=== PATIENT | female | born 1950 | race African-American/Black ===

== ENCOUNTER 2017-02-05 12:26 | Observation (INO) | payer MEDICARE ==
[2017-02-05 13:39] LABS: PTT 28.5 SEC (22.9-36.1); Prothrombin Time 13.6 SEC (12.0-14.7)
[2017-02-05 14:04] LABS: Troponin I Less than 0.010 ng/mL (< 0.028)
--- NOTE | 2017-02-05 14:58 | CT ---
CT ANGIO CHEST WITH CONTRAST: Technique: Multiple axial tomograms were obtained through the chest with IV enhancement in the pulmon olivia angio phase following angio protocol with multiplanar reconstruction and 3D post processing. History: Elevated D-Dimer. Syncope. Pulmonary artery opacification is suboptimal. This exam was performed primarily in an aortic phase wi th dense aortic pacification. No evidence of proximal pulmonary embolus. Segmental and subsegmental e mboli cannot be excluded because of inadequate pulmonary artery opacity. No evidence of thoracic aortic dissection. Lungs are clear. No infiltrate or effusion. Mediastinum is unremarkable. Both lobes of the thyroid are enlarged and heterogeneous. There is a dominate mass with calcification involving the right lobe of thyroid measuring up to 2.6 cm. There are at least two nodular densities in the left lobe, each measuring up to 1.5 cm. Recommend a separate thyroid ultrasound evaluation. IMPRESSION: 1. Suboptimal opacification of pulmonary arteries. No evidence of proximal pulmonary embolus. 2. Enlarged heterogeneous thyroid with bilateral thyroid nodule. A dominant thyroid on the right with calcification. Further thyroid evaluation recommended. POS: [facility]
--- NOTE | 2017-02-05 15:02 | CT ---
ABDOMEN CT WITH CONTRAST PELVIC CT WITH CONTRAST: Date: 02/05/17 HISTORY: Syncopal episode. Patient was sitting in a chair and woke up with her occupational therapist standing over her. Difficulty breathing. Diffuse abdominal pain. Right upper quadrant pain. COMPARISON: None. TECHNIQUE: An abdomen and pelvic CT are performed with IV contrast. Enteric contrast was not administered. Coron al reformatted images are submitted for interpretation. FINDINGS: ABDOMEN CT: Lung bases are clear. There is calcification of the coronary artery as well as the ascending thoracic aorta. Minimal atherosclerotic disease of the descending thoracic aorta and abdominal aorta. No aneu rysm. No periaortic fat stranding. Heart size is within normal limits. No significant pericardial flu id. Though contrast has been given, there is poor enhancement of the solid organs due to delay secondary to performing a CT angiogram of the chest prior to this exam. The liver, spleen, pancreas, and adrena l glands have appropriate enhancement. Gallbladder is unremarkable. Symmetric enhancement and excretion into the intra and extrarenal collecting system bilaterally. No e vidence obstructive uropathy. No mesenteric mass, lymphadenopathy, free air, or free fluid. No gastrohepatic, retrocrural, or periportal lymphadenopathy. Limited evaluation of the alimentary canal due to lack of oral contrast. A hiatal hernia is noted. Il eocecal junction is normal. Normal caliber air-filled appendix. Fecal material in a nondistended, non dilated colon. There are diverticula. No evidence of diverticulitis. PELVIC CT: Limited evaluation of the pelvis due to beam attenuation artifact. There are no calcifications within the urinary bladder. Uterus and adnexal structures are unremarkable. No pelvic mass, lymphadenopathy , free air, or free fluid. There are no lytic or blastic lesions. There is fusion hardware in the lumbosacral junction. IMPRESSION: No acute abnormality in the abdomen or pelvis. POS: [facility]
[2017-02-05] MEDS ORDERED: Sodium Chloride 0.9% 1,000 ML IV SCH (15:35)
[2017-02-05 15:44] VITALS: BMI 27.6
[2017-02-05] MEDS ORDERED: ISOVUE-370 76%-LOCM 1 ML ONE (15:44)
[2017-02-05] MEDS ORDERED: Ondansetron ODT 4 MG TAB PO PRN (18:25)
[2017-02-05] MEDS ORDERED: Albuterol Sulfate 2.5 mg/3 ml Neb NEB PRN (18:25)
[2017-02-05] MEDS ORDERED: Ondansetron HCl/PF 4 MG/2 ML Vial IVP PRN (18:25)
[2017-02-05] MEDS ORDERED: Acetaminophen 500 MG TAB PO PRN (18:25)
[2017-02-05] MEDS: Famotidine 20 MG TAB PO SCH (20:30)
[2017-02-05] MEDS: Pregabalin 50 MG CAP PO SCH (20:30)
[2017-02-05] MEDS: Sodium Chloride 0.9% 1,000 ML IV SCH (20:31)
[2017-02-05] MEDS: traMADol HCl 50 MG TAB PO SCH (21:59)
--- NOTE | 2017-02-05 22:36 | HP ---
DATE OF ADMISSION: 02/05/2017 PRIMARY CARE PROVIDER: Dr. Radha Romero. CHIEF COMPLAINT: Passing out. HISTORY OF PRESENT ILLNESS: This is a 67-year-old -Citizen Of [place] female who presents to [facility] after apparently sustaining a syncopal episode while at home. The patient wa s apparently waiting on her occupational therapist through home health services, when she apparently was found sitting in a chair with her occupational therapist standing over her, trying to wake her up . The patient states she apparently had a brief episode of loss of consciousness, opened her eyes af ter her therapist called her name and denied any head trauma. The patient states that she was recent ly placed on Lasix therapy for lower extremity swelling and recently was taken off the medication as of the date of admission. The patient denies any lower extremity swelling currently, but has noted t hat her blood pressure is on the low side, but has been compliant with her chronic antihypertensive r egimen. The patient states she was recently admitted for short stay at [facility] in [place], recei ving 2 units of packed red blood cells as well as being placed on multivitamin, B12, folate and iron supplementation. The patient states she normally is somewhat weak and requires home health assistanc e currently. The patient states she also receives assistance with activities of daily living as well as assistance with home chores. The patient does ambulate with the use of a rolling walker and yamilka ed any recent fever, chills or exposure history. The patient states the rest of her chronic medicati ons remain the same except the discontinuation of Lasix as stated previously. The patient denied any specific hematemesis, melena, or hematuria. In the emergency room, the patient underwent general ev aluation including CT imaging of the brain showing no acute intracranial process. The patient also u nderwent multiple imaging modalities including CT angiogram of the chest, which was negative and CT o f the abdomen and pelvis, which was negative. Metabolic survey did reveal evidence of dehydration wi th creatinine of 1.95 above baseline values of 0.86 to 0.99. The patient admits to feeling thirsty a nd generally weak. The patient was transferred to the observation unit for further evaluation. PAST MEDICAL HISTORY: 1. Chronic normocytic anemia, status post 2 units of packed red blood cells in 01/2017. 2. Iron deficiency. 3. B12 and folate deficiency. 4. Chronic obstructive pulmonary disease. 5. Hypertension. 6. Depression. 7. History of gout. 8. Venous insufficiency of lower extremities. 9. Renault phenomenon. 10. Chronic pain syndrome. 11. Gastroesophageal reflux disease. 12. Fibromyalgia. 13. Lupus. 14. Degenerative joint disease. 15. History of GI bleed in 02/2014. PAST SURGICAL HISTORY: 1. Status post total left knee arthroplasty. 2. Status post left total hip arthroplasty. 3. Status post back surgery. 4. Status post bilateral breast biopsies. 5. Status post EGD with normal findings in 2013. CURRENT MEDICATIONS: 1. Anoro Ellipta 1 puff inhaled daily. 2. Xopenex 1.25 mg nebulized q.8 hours p.r.n. 3. Lipitor 10 mg p.o. daily. 4. Lisinopril 10 mg half a tab p.o. daily. 5. Omeprazole 40 mg one tab p.o. daily. 6. Prednisone 10 mg 1 tab p.o. daily. 7. Lyrica 50 mg 1 tab p.o. b.i.d. 8. Zoloft 50 mg 1 tab p.o. daily. 9. Hydroxychloroquine sulfate 200 mg 1 tab p.o. daily. 10. Lasix 40 mg p.o. daily. 11. Carvedilol 25 mg half tab p.o. b.i.d. 12. Ferrous gluconate 324 mg one tab p.o. b.i.d. 13. Potassium chloride 10 mEq 2 tabs p.o. daily. 14. Ventolin HFA 2 puffs q.4 hours p.r.n. 15. Plaquenil 200 mg 1 tab p.o. daily. ALLERGIES: CODEINE and LATEX. FAMILY HISTORY: Father is with history of coronary artery disease and renal failure. Mothe r with history of coronary artery disease. SOCIAL HISTORY: The patient resides in the [place], [place] area, living independently, receiving [facility] services. Positive tobacco use up to 20 cigarettes daily. No alcohol or illicit drug use. REVIEW OF SYSTEMS: The following complete review of systems was negative, unless otherwise mentioned in the HPI or below: Constitutional: Weight loss or gain, ability to conduct usual activities. Skin: Rash, itching. Eyes: Double vision, pain. ENT/Mouth: Nose bleeding, neck stiffness, pain, tenderness. Cardiovascular: Palpitations, dyspnea on exertion, orthopnea. Respiratory: Shortness of breath, wheezing, cough, hemoptysis, fever or night sweats. Gastrointestinal: Poor appetite, abdominal pain, heartburn, nausea, vomiting, constipation, or diarr hea. Genitourinary: Urgency, frequency, dysuria, nocturia. Musculoskeletal: Pain, swelling. Neurologic/Psychiatric: Anxiety, depression. Allergy/Immunologic: Skin rash, bleeding tendency. Otherwise, negative except as stated per HPI. PHYSICAL EXAMINATION: VITAL SIGNS: On admission, blood pressure 102/54, pulse 81, respiratory rate 20, temperature 98.2 de grees Fahrenheit, O2 saturation 98% on room air. GENERAL APPEARANCE: This is a 67-year-old -Citizen [place] female, alert and oriented x3, pleasant, conversant, in no acute distress. HEENT: Pupils are equal, round, and reactive to light and accommodation. Extraocular muscles are in tact. No scleral icterus, no conjunctival injection. Nares patent. OP is clear. Teeth in fair rep air. NECK: Supple, no cervical adenopathy, no thyromegaly, no carotid bruits, no JVD appreciated. Cervic al spine with full active and passive range of motion. CHEST: Lungs are clear to auscultation bilaterally. CARDIOVASCULAR: S1, S2, without noted murmur. ABDOMEN: Flat, soft, nontender, nondistended. Bowel sounds are positive in all four quadrants. The re is no hepatosplenomegaly, no abdominal bruits, no rebound or guarding appreciated. EXTREMITIES: Warm and dry with fair turgor. No clubbing, cyanosis or asymmetric edema appreciated. Pulses palpable distally at the dorsalis pedis, posterior tibial and popliteal arteries bilaterally. Capillary refill less than 2 seconds. NEUROLOGIC: Cranial nerves II-XII are grossly intact. No focal or lateralizing signs appreciated. PERTINENT LABORATORY DATA AND X-RAY FINDINGS: Sodium 142, potassium 3.3, chloride 102, CO2 of 27, BU N 32, creatinine 1.95. Estimated GFR of 31, glucose 101. Lactic acid level 1.2, calcium 8.7, magnes ium 1.8. LFTs within normal limits. Troponin I negative x1. BNP 83.7. CBC showed a white blood ce ll count 6.8, hemoglobin 10, hematocrit 32, platelet count 179 with normal differential. Urinalysis negative. CT of the brain dated 02/05/2017 showed no acute intracranial process. CT angiogram of th e chest dated 02/05/2017 showed no evidence for pulmonary embolus. CT of the abdomen and pelvis date d 02/05/2017 showed no acute intraabdominal process. Portable chest x-ray dated 02/05/2017 showed no acute cardiopulmonary process. EKG dated 02/05/2017 by my interpretation shows sinus mechanism with heart rates in the 70s. Normal R-wave progression noted in the precordial leads. Normal axis. No acute ST-T wave changes appreciated. ASSESSMENT AND PLAN: 1. Question of syncopal episode. The patient will be observed on the telemetry unit. Appears dehyd ration and volume depletion as underlying etiology with recent use of Lasix. Continue intravenous no rmal saline at 75 mL per hour. Avoid antihypertensive medications and diuretic therapy. Check carot id Doppler study to rule out focal stenosis. Check 2D transthoracic echocardiogram for ejection frac tion and valvular function. 2. Hypotension. Suspect iatrogenic with the recent addition of Lasix. We will discontinue Lasix an d continue IV fluids as stated previously in #1. Avoid antihypertensive medications. Serial blood p ressure monitoring. 3. Acute kidney injury on chronic kidney disease stage 2 to 3. We will continue IV fluids as outlin ed previously. Avoid nephrotoxic agents and contrast media. Hold Lasix and lisinopril. Repeat crea tinine in the a.m. 4. Chronic normocytic anemia. 5. History of iron deficiency as well as B12 and folate deficiency. Resume multivitamin supplements . Resume folate, thiamine, and ferrous sulfate. 6. Prophylaxis. Sequential compression devices while in bed. Pepcid 20 mg p.o. b.i.d. PT evaluati on for functional assessment. Rolling walker with ambulation. 7. Code status is FULL. Surrogate medical decision maker not identified.
[2017-02-06] MEDS: Sodium Chloride 0.9% 1,000 ML IV SCH (03:44)
[2017-02-06] MEDS: traMADol HCl 50 MG TAB PO SCH (05:30)
[2017-02-06 05:37] LABS: Anion Gap 9 mmol/L (10-20); BUN (Urea Nitrogen) 25 mg/dL (9.8-20.1); Calc. Creatinine Clearance 43 mL/min (70-130); Calcium 8.4 mg/dL (7.8-10.44); Carbon Dioxide 27 mmol/L (23-31); Chloride 105 mmol/L (98-107); Estimated GFR-MDRD 41
[2017-02-06 06:24] LABS: Band 1 % (5-11); Hematocrit 30.9 % (36.0-47.0); Mean Platelet Volume 8.6 fL (7.4-10.4); Neutrophil 74 % (42-75); Reactive Lymphocytes 1 % (0-10); Red Blood Cell (RBC) Count 3.35 mill/uL (4.20-5.40); White Blood Cell (WBC) Count 5.2 thou/uL (4.8-10.8)
[2017-02-06] MEDS ORDERED: Ferrous Gluconate 324 MG TAB PO SCH (08:00)
--- NOTE | 2017-02-06 08:55 | ULT ---
CAROTID DOPPLER: Date: 02/06/17 PROVIDED CLINICAL HISTORY: Syncope. FINDINGS: Tran scale and color Doppler sonography with spectral analysis was performed of the extracranial kam tid system bilaterally. There is scattered atherosclerotic plaque present. There is no evidence for a hemodynamically significant internal carotid artery stenosis by peak systolic velocity or ratio crit eria. Bilateral thyroid nodules are noted, including a left-sided predominantly solid appearing nodul e measuring at least 3.0 cm. Antegrade flow is seen in the vertebral arteries. IMPRESSION: 1. No sonographic evidence for hemodynamically significant internal carotid artery stenosis. 2. Thyroid nodules, for which a dedicated thyroid ultrasound is recommended. CODE T. POS: OFF
[2017-02-06] MEDS ORDERED: predniSONE 5 MG TAB PO SCH (09:00)
[2017-02-06] MEDS ORDERED: Multivitamin W/ Minerals 1 TAB PO SCH (09:00)
[2017-02-06] MEDS ORDERED: Folic Acid 1 MG TAB PO SCH (09:00)
[2017-02-06] MEDS ORDERED: Senokot S 8.6-50 MG TAB PO SCH (09:00)
[2017-02-06] MEDS ORDERED: Fluticasone Propionate Nasal Spray 16 gm Bottle NASAL SCH (09:00)
[2017-02-06] MEDS ORDERED: Aspirin 81 mg Enteric Coated Tablet PO SCH (09:00)
[2017-02-06] MEDS: Pregabalin 50 MG CAP PO SCH (09:40)
[2017-02-06] MEDS: Famotidine 20 MG TAB PO SCH (09:40)
[2017-02-06 12:30] VITALS: TEMP 97.9
[2017-02-06 17:26] VITALS: BP 116/53
--- NOTE | 2017-02-06 18:15 | DIS ---
DATE OF ADMISSION: 02/05/2017 DATE OF DISCHARGE: 02/06/2017 DISCHARGE DIAGNOSES: 1. Syncope secondary to volume depletion and dehydration, resolved. 2. Acute kidney injury/chronic kidney disease stage 2-3 secondary to volume depletion, improved. 3. Chronic normocytic anemia with B12, folate and iron deficiency component, stable. 4. Hypertension, stable. CONSULTATIONS: None. PERTINENT LABORATORY AND X-RAY FINDINGS: Creatinine ranged between 1.52-1.95 with estimated GFR rang ing between 31-41, troponin I negative x2. CBC showed a hemoglobin of 9.8, hematocrit 31, platelet c ount 166. Portable chest x-ray dated 02/05/2017 showed no acute cardiopulmonary process. Right lowe r extremity venous Doppler study dated 02/05/2017 showed no evidence for DVT. CT angiogram of the ch est dated 02/05/2017 showed no evidence for pulmonary embolus. CT of the brain dated 02/05/2017 show ed no acute intracranial process. CT of the abdomen and pelvis dated 02/05/2017 showed no acute intr aabdominal process. Carotid Doppler study dated 02/06/2017 showed no hemodynamically significant marija nosis. Thyroid nodules noted. 2D transthoracic echocardiogram performed on 02/06/2017 pending at th e time of this dictation. HOSPITAL COURSE: The patient was observed on the telemetry unit after initially presenting with ques tionable syncopal/near syncopal event. The patient underwent extensive evaluation with multiple imag ing modalities and metabolic assessment showing evidence of volume depletion, acute kidney injury in the context of iatrogenic component likely due to Lasix therapy and ongoing use of lisinopril. The p atient received IV fluids during her entire hospital course with overall improved in renal function a nd symptomatic improvement. The patient was held off of Lasix and lisinopril therapy with recommenda tion to hold on outpatient basis with evaluation by her primary care provider and freedom of information officer after discharge. Telemetry monitoring showed sinus mechanism without evidence of acute arrhythmia or dysrh ythmia, and overall, the patient remained clinically stable through the hospital course. The patient overall clinically stable and ready for discharge, 02/06/2017. DISCHARGE MEDICATIONS: 1. Albuterol sulfate nebulized solution 2.5 mg nebulize q.8 hours p.r.n. 2. Enteric coated aspirin 81 mg 1 tab p.o. daily. 3. Vitamin B12 of 1000 mcg subcutaneously q. weekly. 4. Ferrous gluconate 324 mg p.o. b.i.d. 5. Flonase nasal spray 2 sprays in each naris daily. 6. Folic acid 1 mg p.o. daily. 7. Lisinopril 20 mg 1 tab p.o. daily, hold until 02/09/2017. 8. Multivitamin 1 tab p.o. daily. 9. Prilosec 40 mg 1 tab p.o. daily. 10. Klor-Con 10 mEq 1 tab p.o. daily. 11. Prednisone 5 mg 1 tab p.o. daily. 12. Lyrica 50 mg p.o. b.i.d. 13. Senokot-S 8.6/50 mg 1 tab p.o. daily. 14. Zoloft 50 mg 1 tab p.o. daily. 15. Tramadol 50 mg 2 tabs p.o. q.8 hours p.r.n. pain. 16. Anoro Ellipta one inhalation daily. FOLLOWUP: The patient will follow up with her primary care provider, Dr. Radha Romero within 7 da ys of discharge. CONDITION ON DISCHARGE: Stable. ACTIVITY: Ad audi. DIET: Heart healthy. CODE STATUS: FULL. DISPOSITION: Home on 02/06/2017.
[2017-02-10] MEDS ORDERED: Cyanocobalamin 1000 MCG/ML VIAL SC SCH (09:00)
== END 2017-02-06 14:21 | disposition home or self-care (01) ==
LOC: ERS 12:26 → 2SW 15:16
PROVIDERS: ADMIT Family Medicine; ATTEND Family Medicine
DX: E86.0 Dehydration (principal); R55 Syncope and collapse; J44.9 Chronic obstructive pulmonary disease, unspecified; M10.9 Gout, unspecified; G89.4 Chronic pain syndrome; K21.9 Gastro-esophageal reflux disease without esophagitis; M32.9 Systemic lupus erythematosus, unspecified; M19.90 Unspecified osteoarthritis, unspecified site; I12.9 Hypertensive chronic kidney disease with stage 1 through stage 4 chronic kidney disease, or unspecified chronic kidney disease; N18.3 Chronic kidney disease, stage 3 (moderate); N17.9 Acute kidney failure, unspecified; D64.9 Anemia, unspecified; I95.9 Hypotension, unspecified; F17.210 Nicotine dependence, cigarettes, uncomplicated; F32.9 Major depressive disorder, single episode, unspecified; Z88.5 Allergy status to narcotic agent; Z91.040 Latex allergy status; Z79.899 Other long term (current) drug therapy; Z98.890 Other specified postprocedural states; Z82.49 Family history of ischemic heart disease and other diseases of the circulatory system; Z84.1 Family history of disorders of kidney and ureter
CPT/HCPCS: 71275; 74177; 80048; 82550; 82553; 84484; 85007; 85027; 85610; 85730; 93005; 93306; 93880; 94640 ×2; 96360; 96361 ×2; 97139; 99285; G0378; G8978; G8979; G8980; 36415; A4216; J7620

== ENCOUNTER 2017-02-11 15:04 | Emergency (ER) | payer MEDICARE ==
[2017-02-11 16:42] LABS: #Eosinphils 0.1 thou/uL (0.0-0.7); #Lymphocytes 0.9 thou/uL (1.20-3.40); #Monocytes 0.5 thou/uL (0.11-0.59); #Neutrophils 5.9 thou/uL (1.40-6.50); %Eosinophils 1.4 % (0.0-10.0); %Lymphocytes 11.7 % (21.0-51.0); %Monocytes 6.7 % (0.0-10.0); Hematocrit 32.1 % (36.0-47.0); Mean Platelet Volume 8.9 fL (7.4-10.4); Red Blood Cell (RBC) Count 3.51 mill/uL (4.20-5.40); White Blood Cell (WBC) Count 7.4 thou/uL (4.8-10.8)
[2017-02-11 16:47] LABS: Prothrombin Time 13.6 SEC (12.0-14.7)
[2017-02-11 16:48] LABS: PTT 22.4 SEC (22.9-36.1)
[2017-02-11 16:56] LABS: Bilirubin Negative (Negative); Blood, Urine Negative (Negative); Glucose, Urine (Dipstick) Negative (Negative); Ketone, Urine Negative (Negative); Nitrite Negative (Negative); Protein, Urine (Dipstick) Negative (Neg-Trace)
[2017-02-11 17:01] LABS: ALT (SGPT) Less than 7 U/L (8-55); AST (SGOT) 19 U/L (5-34); Alkaline Phosphatase 67 U/L (40-150); Anion Gap 14 mmol/L (10-20); BUN (Urea Nitrogen) 29 mg/dL (9.8-20.1); Bilirubin, Total 0.6 mg/dL (0.2-1.2); CK (CPK) 24 U/L (29-168); Calc. Creatinine Clearance 0 mL/min (70-130); Calcium 9.3 mg/dL (7.8-10.44); Carbon Dioxide 27 mmol/L (23-31); Chloride 97 mmol/L (98-107); Estimated GFR-MDRD 31; Globulin 5.4 g/dL (2.4-3.5); Lipase 104 U/L (8-78); Protein, Total 8.9 g/dL (6.0-8.3)
[2017-02-11 17:04] LABS: Troponin I Less than 0.010 ng/mL (< 0.028)
--- NOTE | 2017-02-11 17:47 | RAD ---
EXAM: CHEST ONE VIEW 02/11/17 COMPARISON: 02/05/17. HISTORY: Chest pain. FINDINGS: Normal cardiac silhouette. Pulmonary vessels and hilum are normal. No masses or consolidation. No pne umothorax or osseous abnormalities. IMPRESSION: No acute cardiopulmonary process. POS: [facility]
--- NOTE | 2017-03-03 13:54 | EKG ---
Test Reason : Blood Pressure : / mmHG Vent. Rate : 070 BPM Atrial Rate : 070 BPM P-R Int : 158 ms QRS Dur : 096 ms QT Int : 448 ms P-R-T Axes : 065 -42 067 degrees QTc Int : 483 ms Normal sinus rhythm Left axis deviation Abnormal ECG Confirmed by ИВАН LYNNE, ISAIAS ([id number]), art editor JOZEF MOSQUEDA ([id number]) on 03/03/2017 1:52:36 PM Referred By: Confirmed By:ISAIAS OATES MD
== END 2017-02-11 17:25 | disposition home or self-care (01) ==
LOC: ERS 15:04
DX: R07.89 Other chest pain (principal); R53.1 Weakness; J44.9 Chronic obstructive pulmonary disease, unspecified; M10.9 Gout, unspecified; K92.2 Gastrointestinal hemorrhage, unspecified; D64.9 Anemia, unspecified; F41.9 Anxiety disorder, unspecified; F17.210 Nicotine dependence, cigarettes, uncomplicated; Z79.891 Long term (current) use of opiate analgesic; Z79.899 Other long term (current) drug therapy
CPT/HCPCS: 36415; 51701; 71010; 80053; 81003; 82553; 83605; 83690; 83880; 84443; 84484; 85025; 85610; 85730; 87040; 93005; 96360

== ENCOUNTER 2017-12-03 19:35 | Observation (INO) | payer MEDICARE ==
--- NOTE | 2017-12-03 20:48 | RAD ---
PA AND LATERAL CHEST X-RAY 12/03/17 HISTORY: Anemia. COMPARISON: 08/29/17. FINDINGS: The cardiac silhouette and pulmonary vasculature are within normal limits. Lungs remain clear. There has been no interval change when compared to the prior exam. IMPRESSION: No acute cardiopulmonary process. POS: [facility]
--- NOTE | 2017-12-03 21:25 | RAD ---
THREE VIEWS LEFT WRIST: 12/03/17 HISTORY: Anemia. Erythema nodosum. FINDINGS: No fracture, dislocation, or other osseous abnormality is seen involving the left wrist. IMPRESSION: No acute osseous abnormality. POS: [facility]
[2017-12-03 21:32] LABS: CKMB 0.6 ng/mL (0-6.6); Troponin I Less than 0.010 ng/mL (< 0.028)
[2017-12-03] MEDS ORDERED: HYDROcodone/Acetaminophen 5/325 mg Tablet ONE (21:51)
[2017-12-03] MEDS ORDERED: Ondansetron HCl/PF 4 MG/2 ML Vial IVP PRN (22:42)
[2017-12-04 01:43] VITALS: BMI 23.4
[2017-12-04] MEDS: Acetaminophen 325 MG TAB PO PRN ×2 (02:09→09:30)
--- NOTE | 2017-12-04 02:11 | HP ---
PRIMARY CARE PHYSICIAN: Dr. Romero. CODE STATUS: FULL CODE. TIME OF EVALUATION: 10:40 p.m. CHIEF COMPLAINT: Generalized weakness and generalized pain. HISTORY OF PRESENT ILLNESS: This is a 67-year-old female patient with past medical history of chroni c anemia, myelodysplastic syndrome, lupus, fibromyalgia, came to the hospital after having generalize d pain, generalized weakness, symptoms have been present for a long time; however, in the past few we eks, she also had some shortness of breath and symptoms of fatigue, was getting very severe. Her blo od count was checked and hemoglobin was found to be 6. Patient is receiving blood transfusion and sy mptomatic treatment. REVIEW OF SYSTEMS: Constitutional: No fevers. The patient reported chills, severe generalized weak ness. Respiratory: No cough, sputum production or shortness of breath. Cardiovascular: No chest p ain, palpitation. Gastrointestinal: No nausea, vomiting, diarrhea or abdominal pain. [employer]: No dizz iness, headache or feeling lightheaded. Genitourinary: No burning with urination. Extremities: No leg swelling. PAST MEDICAL HISTORY: Fibromyalgia, Raynaud's, osteoarthritis, lupus, COPD, gout, history of GERD, u pper GI bleeding, hypertension, and anemia. PAST SURGICAL HISTORY: Cholecystectomy, right knee replacement, laminectomy, left hip replacement, b unionectomy of the right foot, cardiac catheterization in 2004. PSYCHIATRIC HISTORY: History of anxiety. SOCIAL HISTORY: She smokes cigarettes, smoked for 30 years 1 pack per day. No alcohol, no drugs. DRUG ALLERGIES: CODEINE and LATEX. REPORTED MEDICATIONS: Omeprazole, sertraline, aspirin, Flonase, Xopenex, Lyrica, hydroxyzine, Afrin, lidocaine, Tylenol, amlodipine, cyanocobalamin, atorvastatin. PHYSICAL EXAMINATION: VITAL SIGNS: On presentation, blood pressure 160/79 with heart rate 76, respiratory rate was 18, tem perature 98.4, pain 7/10, oxygen saturation was 100% on room air. GENERAL APPEARANCE: The patient is alert, oriented, in no acute distress. HEENT: Eyes, normal conjunctivae. Moist oral mucosa. Anicteric. NECK: No JVD. RESPIRATORY: Bilateral air entry. No rales or wheezes. Symmetric expansion. CARDIOVASCULAR: Normal rate, regular rhythm. No murmurs or gallop. No edema. ABDOMEN: Soft, normal bowel sounds. MUSCULOSKELETAL: Patient has tenderness in shoulders and main joints in the body, is generalized. F or that reason, Decreased range of motion. Baseline strength. SKIN: Warm and intact. No pallor, no rash or redness. Peripheral pulses are present. Capillary re fill seems to be intact. NEUROLOGIC: Baseline sensorium. No evidence of any new focal weakness. Baseline speech. Cranial n erves seem to be intact. PSYCHIATRIC: The patient is in a good mood. No anxiety. Oriented. Optimal judgement. EKG was reviewed. The patient has normal sinus rhythm with left axis deviation, minimal voltage crit eria for LVH, prolonged QT, no evidence of any acute ischemic event. Chest x-ray was reviewed. The patient had no acute cardiopulmonary process. A wrist x-ray was reviewed. The patient had no acute osseous abnormalities. LABORATORY DATA: Reviewed. Patient has white count 4.8, hemoglobin 6.7, MCV 89, platelet count 185. INR 1.0. D-dimer 0.9, mildly elevated. Chemistry: Sodium 140, potassium 3.4, chloride 105, carbo n dioxide 35, anion gap 13, BUN 13, creatinine 1.13, GFR 58, glucose 104. Lactic acid 1.4, calcium 9 .0, magnesium 1.8, phosphorus 4.1. Iron 30, TIBC 245, ferritin pending. Total bilirubin less than 0 .2. LFTs were negative. TSH was on the low side. ASSESSMENT AND PLAN: The patient will be placed in the hospital with following medical problems. 1. Symptomatic anemia. The patient has hemoglobin of 6.7, this is acute on chronic. We will monito r, after as needed. This seems to be secondary to underlying lupus and also might be a compone nt of myelodysplastic syndrome. We will need followup with a painting worker as an outpatient. 2. Hypokalemia. Potassium 3.4. This is mild, replace electrolytes as needed. 3. History of lupus. We will reconcile home medications, treat symptomatically. 4. History of fibromyalgia. Patient has generalized pain, especially in the major joints in the bod y, we will treat symptomatically. We will reconcile home medications. 5. Deep venous thrombosis prophylaxis.
[2017-12-04 06:05] LABS: #Eosinphils 0.1 thou/uL (0.0-0.7); #Monocytes 0.5 thou/uL (0.11-0.59); #Neutrophils 2.4 thou/uL (1.40-6.50); %Basophils 0.2 % (0.0-1.0); %Eosinophils 1.6 % (0.0-10.0); %Lymphocytes 25.5 % (21.0-51.0); %Neutrophils 60.7 % (42.0-75.0); Hemoglobin 7.2 g/dL (12.0-16.0); Mean Corpuscular HGB CONC 30.3 g/dL (32.0-36.0); Mean Platelet Volume 9.3 fL (7.4-10.4); Platelet Count 166 thou/uL (130-400); RBC Distribution Width 19.3 % (11.5-14.5); Red Blood Cell (RBC) Count 2.66 mill/uL (4.20-5.40)
[2017-12-04 06:26] LABS: Anion Gap 9 mmol/L (10-20); BUN (Urea Nitrogen) 12 mg/dL (9.8-20.1); Calc. Creatinine Clearance 61 mL/min (70-130); Calcium 8.4 mg/dL (7.8-10.44); Carbon Dioxide 25 mmol/L (23-31); Chloride 106 mmol/L (98-107); Estimated GFR-MDRD 71; Glucose 96 mg/dL (80-115); Potassium 3.4 mmol/L (3.5-5.1); Sodium 137 mmol/L (136-145)
[2017-12-04] MEDS ORDERED: Potassium Chloride 20 MEQ TAB PO SCH (08:00)
--- NOTE | 2017-12-04 14:12 | DIS ---
DATE OF DISCHARGE: 12/04/2017 DISCHARGE DISPOSITION: Home. FOLLOWUP: Follow up with primary care physician, Dr. Romero, in 1 week. Follow up with primary hem atologist, Dr. Linton, after 1 week. ALLERGIES: The patient is allergic to CODEINE and LATEX. DISCHARGE HOME MEDICATIONS: As same as admission medications. No changes were made. BRIEF HOSPITAL COURSE: The patient is a 67-year-old female with chronic anemia, systemic lupus eryth ematosus and myelodysplastic syndrome, who presented to the hospital with generalized weakness. She was found to have a hemoglobin of 6.7. Her routine hemoglobin runs around 9.0. She was admitted to the hospital with a diagnosis of symptomatic anemia. She received a total of 2 units of PRBC. Her h emoglobin this morning was 7.2 after first unit of PRBC. She will receive another unit of PRBC later today. I called the cancer clinic and discussed with Dr. Cerda. Dr. Cerda recommended to set up patient's follow up at the cancer clinic for possible Epogen injections. The patient's symptom h as significantly improved after blood transfusion. Reticulocyte was 3.4. Ferritin was 1091 with iro n of 30, TIBC of 245. Total bilirubin was negative. TSH was 0.2. Troponins were negative. Stool f or occult blood was negative as well. She was also found to have mild hypokalemia that was replaced. Leave repeat labs as outpatient. FINAL DIAGNOSES: 1. Symptomatic anemia. 2. Hypokalemia, corrected. 3. Systemic lupus erythematosus. 4. Fibromyalgia. 5. Chronic anemia. 6. Hyperlipidemia. 7. Chronic obstructive pulmonary disease. Plan of care was discussed with the patient in detail. She stated understanding.
[2017-12-04 14:48] VITALS: BP 132/63; TEMP 99.1
[2017-12-04] MEDS ORDERED: Pregabalin 25 MG CAP PO SCH (15:00)
[2017-12-04] MEDS ORDERED: Pregabalin 50 MG CAP PO SCH ×2 (15:00)
[2017-12-05] MEDS ORDERED: Non-Formulary Item 1 EACH (Sertraline Hcl [Zoloft] 100 MG) PO SCH (09:00)
== END 2017-12-04 15:46 | disposition home or self-care (01) ==
LOC: ERS 19:35 → 2SW 12-04 00:55
PROVIDERS: ADMIT Hospitalist; ATTEND Hospitalist
DX: D46.9 Myelodysplastic syndrome, unspecified (principal); M79.7 Fibromyalgia; M32.9 Systemic lupus erythematosus, unspecified; M19.90 Unspecified osteoarthritis, unspecified site; J44.9 Chronic obstructive pulmonary disease, unspecified; M10.9 Gout, unspecified; K21.9 Gastro-esophageal reflux disease without esophagitis; I73.00 Raynaud's syndrome without gangrene; F41.9 Anxiety disorder, unspecified; F17.210 Nicotine dependence, cigarettes, uncomplicated; E87.6 Hypokalemia; I12.9 Hypertensive chronic kidney disease with stage 1 through stage 4 chronic kidney disease, or unspecified chronic kidney disease; N18.2 Chronic kidney disease, stage 2 (mild); E78.5 Hyperlipidemia, unspecified; G47.00 Insomnia, unspecified; G89.4 Chronic pain syndrome; Z79.82 Long term (current) use of aspirin; Z79.899 Other long term (current) drug therapy; Z88.5 Allergy status to narcotic agent; Z91.040 Latex allergy status
CPT/HCPCS: 36430 ×2; 71046; 73110; 80048; 82274; 82553; 84484; 85025; 86850; 86900; 86901; 86920 ×2; 93005; 99285; G0378; P9016; 36415; A4216

== ENCOUNTER 2018-01-21 10:26 | Outpatient (CLI) | payer MEDICARE, OTHER | END 2018-01-21 10:27 | disposition home or self-care (01) | LOC: BICMAMMO 10:26 | PROVIDERS: ATTEND Family Medicine | DX: Z12.31 Encounter for screening mammogram for malignant neoplasm of breast (principal); R92.1 Mammographic calcification found on diagnostic imaging of breast | CPT/HCPCS: 77063; 77067 ==

== ENCOUNTER 2019-01-11 11:49 | Observation (INO) | payer MEDICARE, OTHER ==
[2019-01-11] MEDS ORDERED: ISOVUE-370 76%-LOCM 1 ML ONE (12:00)
[2019-01-11 12:48] LABS: #Eosinphils 0.1 thou/uL (0.0-0.7); #Lymphocytes 0.9 thou/uL (1.20-3.40); #Monocytes 0.5 thou/uL (0.11-0.59); #Neutrophils 2.6 thou/uL (1.40-6.50); %Basophils 0.4 % (0.0-1.0); %Eosinophils 2.9 % (0.0-10.0); %Lymphocytes 22.3 % (21.0-51.0); %Monocytes 11.5 % (0.0-10.0); %Neutrophils 62.9 % (42.0-75.0); Hemoglobin 8.6 g/dL (12.0-16.0); Mean Corpuscular HGB CONC 31.6 g/dL (32.0-36.0); Mean Corpuscular Hemoglobin 28.4 pg (27.0-31.0); Mean Corpuscular Volume 89.8 fL (78.0-98.0); Mean Platelet Volume 8.6 fL (7.4-10.4); Platelet Count 172 thou/uL (130-400); RBC Distribution Width 13.6 % (11.5-14.5); Red Blood Cell (RBC) Count 3.05 mill/uL (4.20-5.40); White Blood Cell (WBC) Count 4.2 thou/uL (4.8-10.8)
[2019-01-11 13:04] LABS: ALT (SGPT) 12 U/L (8-55); AST (SGOT) 20 U/L (5-34); Albumin 3.4 g/dL (3.4-4.8); Alkaline Phosphatase 77 U/L (40-110); Anion Gap 11 mmol/L (10-20); BUN (Urea Nitrogen) 11 mg/dL (9.8-20.1); Bilirubin, Total 0.3 mg/dL (0.2-1.2); CK (CPK) 31 U/L (29-168); Calc. Creatinine Clearance 0 mL/min (70-130); Calcium 9.3 mg/dL (7.8-10.44); Carbon Dioxide 25 mmol/L (23-31); Chloride 104 mmol/L (98-107); Estimated GFR-MDRD 66; Glucose 90 mg/dL (80-115); Lipase 47 U/L (8-78); Potassium 3.3 mmol/L (3.5-5.1); Protein, Total 8.4 g/dL (6.0-8.3); Sodium 137 mmol/L (136-145)
[2019-01-11 14:02] LABS: Bilirubin Negative (Negative); Blood, Urine Trace (Negative); Clarity Clear (Clear); Glucose, Urine (Dipstick) Negative (Negative); Leukocyte Trace (Negative); Nitrite Negative (Negative); Protein, Urine (Dipstick) Negative (Neg-Trace); Urobilinogen 0.2 mg/dL (Less than 2)
[2019-01-11 14:22] LABS: Bacteria/HPF Rare-Few HPF (None Seen); RBC/HPF 0-3 HPF (0-3); Yeast-Budding Rare HPF (None Seen)
[2019-01-11] MEDS ORDERED: Ondansetron PF 4 MG/2 ML Vial ONE (15:05)
[2019-01-11] MEDS ORDERED: Morphine 4 MG/ML VIAL ONE (15:20)
--- NOTE | 2019-01-11 15:30 | RAD ---
PORTABLE CHEST 1 VIEW: Date: 01/11/19 Time: 1521 hours HISTORY: Dyspnea. FINDINGS: Comparison made with exam of 05/05/17. The heart size is normal. The aorta is tortuous. No lobar consolidation, pneumothoraces, or pleural e ffusions are seen. IMPRESSION: No radiographic evidence of acute cardiopulmonary process. POS: OFF
[2019-01-11] MEDS ORDERED: Aspirin Chewable 81 MG TAB ONE (16:18)
[2019-01-11] MEDS ORDERED: cefTRIAXone\\ROCEPHIN 1 GM VIAL ONE (16:18)
--- NOTE | 2019-01-11 17:05 | CT ---
EXAM: CTA of the chest HISTORY: Chest pain that radiates to the back COMPARISON: 02/05/2017 TECHNIQUE: Multiple contiguous axial images were obtained a CTA of the chest with contrast per pulmon olivia embolism protocol. 3-D oblique MIP reformats and direct coronal reformats were performed. FINDINGS: HEART: Normal in size without focal cardiac abnormality. PULMONARY ARTERIES: Normal in caliber without filling defects to suggest pulmonary emboli. MEDIASTINUM: No hilar or mediastinal lymphadenopathy. The esophagus is enlarged and contains fluid. T his is stable compared to the prior exam. LUNGS: No focal infiltrates or masses. PLEURAL SPACE: No pleural effusion or pneumothorax. CHEST WALL SOFT TISSUES: Unremarkable VISUALIZED OSSEOUS STRUCTURES: Unremarkable VISUALIZED SUBDIAPHRAGMATIC STRUCTURES: Unremarkable. Status post cholecystectomy. IMPRESSION: No evidence of pulmonary thromboembolism
[2019-01-11 17:13] LABS: Troponin I 0.013 ng/mL (< 0.028)
[2019-01-11] MEDS ORDERED: Morphine 4 MG/ML VIAL SLOW IVP PRN (18:30)
[2019-01-11] MEDS ORDERED: Ondansetron ODT 4 MG TAB SL PRN (18:30)
[2019-01-11] MEDS ORDERED: Ondansetron PF 4 MG/2 ML Vial IVP PRN (18:30)
[2019-01-11] MEDS ORDERED: Senokot S 8.6-50 MG TAB PO PRN (19:10)
[2019-01-11] MEDS ORDERED: Nitroglycerin 0.4 MG TAB (25 Tab Bottle) PO PRN (19:10)
[2019-01-11] MEDS ORDERED: Morphine 2 MG/ML SYRINGE SLOW IVP PRN (19:10)
[2019-01-11] MEDS ORDERED: Guaifenesin DM 100-10/5 ML UDCUP PO PRN (19:10)
[2019-01-11] MEDS ORDERED: HYDROcodone/Acetaminophen 5/325 mg Tablet PO PRN (19:10)
[2019-01-11] MEDS ORDERED: Levalbuterol HCl 1.25 MG/0.5 ML NEB NEB PRN (19:10)
[2019-01-11] MEDS ORDERED: Acetaminophen 325 MG TAB PO PRN (19:10)
[2019-01-11] MEDS ORDERED: Bisacodyl 10 MG SUPP PR PRN (19:10)
[2019-01-11] MEDS ORDERED: Albuterol Sulfate 2.5 mg/3 ml Neb NEB PRN (19:24)
[2019-01-11] MEDS ORDERED: Cyanocobalamin 1000 MCG/ML VIAL SC SCH (20:00)
[2019-01-11 20:58] LABS: Troponin I 0.021 ng/mL (< 0.028)
[2019-01-11] MEDS ORDERED: Potassium Chloride 20 MEQ TAB PO SCH (21:00)
--- NOTE | 2019-01-11 21:14 | HP ---
REASON FOR ADMISSION: Epigastric pain with retrosternal chest pain. HISTORY OF PRESENTING ILLNESS: The patient gives history of having epigastric pain from last 2 weeks. She had gone to [facility] where she had a CT scan of the abdomen and pelvis done on the . The patient was told she had UTI and was given Keflex for 5 days. , she went to see her primary care physician with persistent pain in the same area. She was asked to continue for 5 more days of Keflex. She has shortness of breath on exertion. Ms. Padgett has long-standing history of lupus. No complaints of diarrhea or bleeding per rectum. No complaints of palpitations or PND. She ambulates with a walker and does all her ADL at home. Last stress test was in 2012. The patient has had prior history of cholecystectomy as well. She has had prior colonoscopy by Dr. Tran, which was normal as far as she knows. PAST MEDICAL AND SURGICAL HISTORY: History of multinodular goiter. Echo done in January 2017 showed EF of 55%. Last stress test in October 2012 was normal. History of lupus; history of fibromyalgia, Raynaud, osteoarthritis, COPD, gout, GERD, prior history of GI bleed, dyslipidemia, hypertension, chronic right leg ulcer, which has been present for more than 6 months now, likely vitiligo; CKD stage 3, cholecystectomy, bilateral knee replacement, left hip replacement, laminectomy, cardiac cath in 2004 with no intervention. CURRENT MEDICATIONS: The patient is on; 1. Omeprazole 20 mg daily. 2. Lyrica 25 mg 3 times daily. 3. Prednisone 5 mg daily. 4. Ferrous sulfate 325 mg p.o. daily. 5. Atorvastatin 10 mg p.o. daily. 6. Xopenex nebulization q.8 hourly p.r.n. 7. Norvasc 10 mg p.o. daily. 8. Vitamin B12 1000 mcg intramuscular shots once a week. 9. Multivitamin 1 tablet once daily. 10. Zoloft 100 mg p.o. daily. 11. Hydroxyzine p.r.n. 12. Anoro Ellipta inhaler daily. 13. Lasix 40 mg daily. 14. [place] p.r.n. for pain. 15. Folic acid 1 mg p.o. daily. 16. Aspirin 81 mg p.o. daily. 17. Lorazepam 0.5 mg p.r.n. for anxiety. 18. 5 mg p.o. 3 times daily. ALLERGIES: ALLERGIC TO CODEINE, BUT THE PATIENT IS COMFORTABLE TAKING NORCO AT HOME. PERSONAL HISTORY: The patient continues half pack a day. Does not abuse alcohol or drugs. FAMILY HISTORY: Mother at the age of 71 years. She has had history of hypertension and coronary artery disease. Father at the age of 81. He had end-stage renal disease, was not on hemodialysis then. Has a living older sister who has dementia. CODE STATUS: Do not attempt to resuscitate. This was discussed with the patient. Power of title attorney is and her two daughters. REVIEW OF SYSTEMS: CONSTITUTIONAL: Negative for weight loss or gain, ability to conduct usual activities. SKIN: Negative for rash, itching. EYES: Negative for double vision, pain. ENT/MOUTH: Negative for nose bleeding, neck stiffness, pain, tenderness. CARDIOVASCULAR: Negative for palpitations, dyspnea on exertion, orthopnea. RESPIRATORY: Negative for shortness of breath, wheezing, cough, hemoptysis, fever or night sweats. GASTROINTESTINAL: Negative for poor appetite, abdominal pain, heartburn, nausea , vomiting, constipation, or diarrhea. GENITOURINARY: Negative for urgency, frequency, dysuria, nocturia. MUSCULOSKELETAL: Negative for pain, swelling. NEUROLOGIC/PSYCHIATRIC: Negative for anxiety, depression. ALLERGY/IMMUNOLOGIC: Negative for skin rash, bleeding tendency. PHYSICAL EXAMINATION: GENERAL: The patient is a 69-year-old female, who is currently not in any acute distress. VITAL SIGNS: Blood pressure 129/60, pulse 90 per minute, respiratory rate 18 per minute, temperature 99.7 degrees Fahrenheit, and saturating 96% on room air. NECK: Supple. No elevated JVD. HEENT: Eyes; extraocular muscles intact. Pupils reacting to light. Oral cavity, mucous membranes are dry. No exudates or congestion CARDIOVASCULAR: S1 and S2 heard. Regular rhythm. RESPIRATORY: Air entry 1+ bilateral. Scattered rhonchi plus bilateral. ABDOMEN: Soft. Bowel sounds heard. Mild tenderness in the epigastric area. No rigidity or guarding. EXTREMITIES: No peripheral edema or calf tenderness. VASCULAR SYSTEM: Peripheral pulses 1+ bilateral. No ischemic ulcerations or gangrene. CENTRAL NERVOUS SYSTEM: No gross focal deficits noted. The patient is alert, awake, and oriented well. PSYCHIATRIC SYSTEM: The patient's mood is euthymic. No hallucinations or delusions. LABORATORY DATA: CT angio chest done shows no evidence of PE. UA shows trace leukocyte esterase with 4 to 6 wbc's, rare budding yeast. Troponin I x2 negative. Lipase 47. Albumin is 3.4. BNP is 71. Liver enzymes within normal limits. BUN 11, creatinine 1.0, potassium is 3.3. White count of 4, H and H of 8 and 27, platelet count is 172. EKG done shows normal sinus rhythm. CLINICAL IMPRESSION AND PLAN: The patient will be under observation on telemetry for epigastric and retrosternal pain. She has history of lupus and likely might have serositis. She has had a recent CT of the abdomen and pelvis done, which did not reveal any acute pathology on the . No obvious pericardial effusion on the CT angio chest. We will obtain echo with 2D Doppler for LV function. Her last stress test was in 2012 and we will obtain a nuclear stress test as well for possible atypical chest pain. The patient is on prednisone for her lupus and is not on any other medications. We will continue prednisone as before. She will be on full-dose aspirin, Norvasc, Lipitor, Xopenex q.8 hourly, ferrous sulfate, folic acid, multivitamin, Lyrica, and Zoloft as before. Morphine q.4 hourly p.r.n. for pain. The patient has had history of multinodular goiter and we will obtain a free T3, free T4, and TSH in the morning. She will be kept n.p.o. after midnight for stress test. We will also obtain Gastroenterology consultation in view of chronic pain for the last 3 weeks if stress test is normal. She has had two ER visits in the last 3 weeks. Job ID: [id number] [facility]
[2019-01-11] MEDS: Pregabalin 25 MG CAP PO SCH (21:33)
[2019-01-12 05:43] LABS: #Eosinphils 0.1 thou/uL (0.0-0.7); #Monocytes 0.4 thou/uL (0.11-0.59); #Neutrophils 1.7 thou/uL (1.40-6.50); %Basophils 0.3 % (0.0-1.0); %Eosinophils 4.4 % (0.0-10.0); %Lymphocytes 29.6 % (21.0-51.0); %Monocytes 12.9 % (0.0-10.0); %Neutrophils 52.9 % (42.0-75.0); Hemoglobin 7.5 g/dL (12.0-16.0); Mean Corpuscular HGB CONC 31.7 g/dL (32.0-36.0); Mean Corpuscular Hemoglobin 28.3 pg (27.0-31.0); Mean Corpuscular Volume 89.3 fL (78.0-98.0); Mean Platelet Volume 9.6 fL (7.4-10.4); Platelet Count 113 thou/uL (130-400); RBC Distribution Width 13.8 % (11.5-14.5); Red Blood Cell (RBC) Count 2.64 mill/uL (4.20-5.40); White Blood Cell (WBC) Count 3.3 thou/uL (4.8-10.8)
[2019-01-12 05:54] LABS: ALT (SGPT) 12 U/L (8-55); AST (SGOT) 15 U/L (5-34); Albumin 2.9 g/dL (3.4-4.8); Alkaline Phosphatase 66 U/L (40-110); Anion Gap 14 mmol/L (10-20); BUN (Urea Nitrogen) 12 mg/dL (9.8-20.1); Bilirubin, Total 0.2 mg/dL (0.2-1.2); Calc. Creatinine Clearance 72 mL/min (70-130); Calcium 8.5 mg/dL (7.8-10.44); Carbon Dioxide 20 mmol/L (23-31); Cardiac Risk 4.8 (Less than 4.5); Chloride 108 mmol/L (98-107); Cholesterol 110 mg/dl (< 200 Desired); Estimated GFR-MDRD 75; Globulin 4.3 g/dL (2.4-3.5); Glucose 82 mg/dL (80-115); HDL Cholesterol 23 mg/dL (>60 Neg Risk); LDL Cholesterol, Calculated 61 mg/dL; Potassium 3.9 mmol/L (3.5-5.1); Protein, Total 7.2 g/dL (6.0-8.3); Sodium 138 mmol/L (136-145); Triglycerides 131 mg/dL (Less than 150)
[2019-01-12 06:11] LABS: Free T4 (Free Thyroxine) 0.91 ng/dL (0.70-1.48); Thyroid Stimulating Hormone 0.4393 uIU/mL (0.35-4.94)
[2019-01-12] MEDS ORDERED: predniSONE 5 MG TAB PO SCH (08:00)
[2019-01-12] MEDS ORDERED: Ferrous Gluconate 324 MG TAB PO SCH (08:00)
[2019-01-12] MEDS ORDERED: Non-Formulary Item 1 EACH (Umeclidinium Brm/Vilanterol Tr [Anoro Ellipta] 1 INH) IH SCH (09:00)
[2019-01-12] MEDS ORDERED: Aspirin 325 mg Enteric Coated Tablet PO SCH (09:00)
[2019-01-12] MEDS ORDERED: Amlodipine 5 MG TAB PO SCH (09:00)
[2019-01-12] MEDS ORDERED: Folic Acid 1 MG TAB PO SCH (09:00)
[2019-01-12] MEDS ORDERED: Multivitamin W/ Minerals 1 TAB PO SCH (09:00)
[2019-01-12] MEDS ORDERED: Atorvastatin Calcium 10 MG TAB PO SCH (09:00)
[2019-01-12] MEDS ORDERED: Enoxaparin Sodium 40 MG/0.4 ML SYRINGE SC SCH (09:00)
[2019-01-12] MEDS: Pregabalin 25 MG CAP PO SCH ×2 (10:51→13:42)
--- NOTE | 2019-01-12 10:55 | NM ---
Myocardial perfusion scan with SPECT imaging HISTORY: Chest pain COMPARISON: None. FINDINGS: Examination is performed using 32.2 mCi of 90 9M technetium sestamibi on the stress and 9.3 mCi on the resting images. This shows a normal distribution of radiopharmaceutical, no signs of ischemia or scar. Wall motion: There is symmetric contractility to the ventricle. Left ventricular ejection fraction: The calculated left ventricular ejection fraction was 67%. IMPRESSION: Unremarkable myocardial perfusion scan.
[2019-01-12 12:36] VITALS: BP 149/67; TEMP 97.9
[2019-01-12 14:10] VITALS: BMI 28.0
[2019-01-12] MEDS ORDERED: Regadenoson 0.4 MG/5 ML SYRINGE ONE (14:52)
--- NOTE | 2019-01-13 13:01 | DIS ---
DATE OF ADMISSION: 01/11/2019 DATE OF DISCHARGE: 01/12/2019 DISCHARGE DIAGNOSES: 1. Epigastric and retrosternal pain. 2. History of lupus. 3. History of fibromyalgia. 4. History of Raynaud's. HISTORY OF PRESENT ILLNESS: The patient is a 69-year-old female with history of significant lupus and Raynaud phenomenon, who presented to the emergency department. The patient had previously been seen by her provider, diagnosed with urinary tract infection and treated with p.o. antibiotics. She subsequently had persistent epigastric and retrosternal pain and presented to the ER in [place]. She had negative enzymes, nonspecific EKG, and was transferred to our facility. HOSPITAL COURSE: The patient was placed in observation. She had a chest x-ray, which was negative. She had a CT angiogram, which was negative for any evidence of PE. She remained on telemetry, had serial cardiac isoenzymes, which were negative. She underwent a nuclear medicine stress test, which was unremarkable with the EF of 67%. She had an echocardiogram performed, which revealed an EF of 60% to 65% and no other major structural or functional abnormalities. With that, the patient was prepared for discharge, talked to her about the possibility of GI consult versus outpatient followup. We were both comfortable with her having outpatient evaluation. PHYSICAL EXAMINATION: VITAL SIGNS: At the day of discharge, temperature is 97.9, pulse 90, respirations 20, O2 saturation 93% to 98% on room air, BP 149/67. GENERAL: She was awake and alert. HEART: Regular rate and rhythm. LUNGS: Clear. ABDOMEN: Benign. EXTREMITIES: Showed some chronic skin changes of the distal fingers from the Raynaud phenomenon, but otherwise no edema. DISPOSITION: The patient is discharged to home. ACTIVITY: As tolerated. DIET: She has no dietary restrictions. MEDICATIONS: She will be on; 1. Folic acid. 2. Atorvastatin. 3. Norvasc. 4. F[place]on. 5. Senokot. 6. Zoloft. 7. Lyrica. 8. Anoro Ellipta. 9. Multivitamin. 10. Xopenex. 11. Omeprazole. 12. [place]. 13. Lasix. 14. B12. 15. Atarax. All unchanged from her home medications. FOLLOWUP: She will follow up with Dr. Radha Romero, and she can return to the hospital should she have any problems prior to that time. Job ID: [id number]
[2019-01-13 18:03] LABS: ANA Symphony (Qualitative) POSITIVE (Negative); ANA Symphony (Quantitative) 1.8 Ratio (< 0.7 Negative); CENP IgG Antibody 0.7 EliAU/mL (<7 Negative); Jo-1 IgG Antibody 0.3 EliAU/mL (<7 Negative); RNP70 IgG Antibody 4.1 EliAU/mL (<7 Negative); SSA/Ro IgG Antibody 0.6 EliAU/mL (<7 Negative); SSB/La IgG Antibody 0.5 EliAU/mL (<7 Negative); Smith D IgG Antibody 2.9 EliAU/mL (<7 Negative); dsDNA IgG Antibody 1.6 IU/mL (<10 Negative)
== END 2019-01-12 16:20 | disposition home or self-care (01) ==
LOC: ERS 11:49 → 2SW 18:07
PROVIDERS: ADMIT Internal Medicine; ATTEND Internal Medicine
DX: R07.2 Precordial pain (principal); R10.13 Epigastric pain; M79.7 Fibromyalgia; M19.90 Unspecified osteoarthritis, unspecified site; K21.9 Gastro-esophageal reflux disease without esophagitis; E78.5 Hyperlipidemia, unspecified; I12.9 Hypertensive chronic kidney disease with stage 1 through stage 4 chronic kidney disease, or unspecified chronic kidney disease; N18.3 Chronic kidney disease, stage 3 (moderate); F17.210 Nicotine dependence, cigarettes, uncomplicated; I73.00 Raynaud's syndrome without gangrene; M10.9 Gout, unspecified; M32.9 Systemic lupus erythematosus, unspecified; Z66 Do not resuscitate; Z79.82 Long term (current) use of aspirin; Z79.899 Other long term (current) drug therapy; Z88.5 Allergy status to narcotic agent; Z91.040 Latex allergy status
CPT/HCPCS: 71045; 71275; 78452; 80053; 80061; 82550; 83690; 83880; 84439; 84481; 84484 ×2; 85025; 86038; 86225; 86235; 87040; 93005; 93017; 93306; 94640 ×2; 94760; 96361; 96365; 96375; 99285; 99406; A9500; G0378 ×2; 36415; 81003; 81015; 84443; J0696; J2270; J2405; J2785; J7512; J7611; J7620; Q9966

== ENCOUNTER 2019-01-27 13:27 | Outpatient (CLI) | payer MEDICARE ==
--- NOTE | 2019-01-27 14:58 | MMO ---
Bilateral MAMMO Bilat Screen [facility]. CLINICAL HISTORY: Patient is 69 years old and is seen for screening. The patient has no family history of breast cancer. The patient has no personal history of cancer. The patient has a history of bilateral Stereotatic Biopsy in April, - benign. VIEWS: The views performed were: bilateral craniocaudal with tomosynthesis and bilateral mediolateral oblique with tomosynthesis. FILMS COMPARED: The present examination has been compared to prior imaging studies performed at [facility] on 05/23/2005, 04/15/2014, 06/06/2015 and 01/21/2018. This study has been interpreted with the assistance of computer-aided detection. MAMMOGRAM FINDINGS: The breasts are almost entirely fat. Benign calcifications are noted bilaterally. Right biopsy clip. There are no suspicious masses, suspicious calcifications, or new areas of architectural distortion. IMPRESSION: THERE IS NO MAMMOGRAPHIC EVIDENCE OF MALIGNANCY. A ROUTINE FOLLOW-UP MAMMOGRAM IN 1 YEAR IS RECOMMENDED. THE RESULTS OF THIS EXAM WERE SENT TO THE PATIENT. ACR BI-RADS Category 2 - Benign finding MAMMOGRAPHY NOTE: 1. A negative mammogram report should not delay a biopsy if a dominant of clinically suspicious mass is present. 2. Approximately 10% to 15% of breast cancers are not detected by mammography. 3. Adenosis and dense breasts may obscure an underlying neoplasm. Reported by: BAILEY MORRISON MD Electonically Signed: [id number]
== END 2019-01-27 13:28 | disposition home or self-care (01) ==
LOC: BICMAMMO 13:27
PROVIDERS: ATTEND Family Medicine
DX: Z12.31 Encounter for screening mammogram for malignant neoplasm of breast (principal)
CPT/HCPCS: 77063; 77067

== ENCOUNTER 2020-12-18 15:44 | Inpatient (IN) | payer MEDICARE ==
[~2020-12-18 15:44] MED LIST: Iopamidol-370 76% 500 ML 1 ML ONE
[2020-12-18] MEDS ORDERED: Acetaminophen 500 MG TAB ONE (16:15)
[2020-12-18 16:29] LABS: #Eosinphils 0.1 thou/uL (0.0-0.7); #Monocytes 0.2 thou/uL (0.11-0.59); #Neutrophils 2.1 thou/uL (1.40-6.50); %Basophils 0.5 % (0.0-1.0); %Eosinophils 1.9 % (0.0-10.0); %Lymphocytes 28.8 % (21.0-51.0); %Neutrophils 61.8 % (42.0-75.0); Hemoglobin 8.3 g/dL (12.0-16.0); Mean Corpuscular HGB CONC 33.4 g/dL (32.0-36.0); Mean Corpuscular Hemoglobin 30.8 pg (27.0-31.0); Mean Corpuscular Volume 92.2 fL (78.0-98.0); Mean Platelet Volume 8.3 fL (7.4-10.4); Platelet Count 201 thou/uL (130-400); RBC Distribution Width 14.3 % (11.5-14.5); Red Blood Cell (RBC) Count 2.68 mill/uL (4.20-5.40); White Blood Cell (WBC) Count 3.4 thou/uL (4.8-10.8)
[2020-12-18 17:08] LABS: ALT (SGPT) 11 U/L (8-55); AST (SGOT) 31 U/L (5-34); Albumin 3.8 g/dL (3.4-4.8); Alkaline Phosphatase 68 U/L (40-110); Anion Gap 15 mmol/L (10-20); BUN (Urea Nitrogen) 13 mg/dL (9.8-20.1); Bilirubin, Total 0.3 mg/dL (0.2-1.2); CK (CPK) 69 U/L (29-168); Calc. Creatinine Clearance 0 mL/min (70-130); Calcium 9.2 mg/dL (7.8-10.44); Carbon Dioxide 23 mmol/L (23-31); Chloride 101 mmol/L (98-107); Globulin 4.8 g/dL (2.4-3.5); Glucose 78 mg/dL (83-110); Protein, Total 8.6 g/dL (5.8-8.1); Sodium 136 mmol/L (136-145)
[2020-12-18] MEDS ORDERED: Potassium Chloride 20 MEQ TAB ONE (17:58)
[2020-12-18 18:15] LABS: Magnesium 1.7 mg/dL (1.6-2.6)
[2020-12-18 19:00] LABS: Bilirubin Negative (Negative); Blood, Urine Negative (Negative); Clarity Clear (Clear); Glucose, Urine (Dipstick) Normal (Negative); Ketone, Urine Trace mg/dL (Negative); Leukocyte Negative Leu/uL (Negative); Nitrite Negative (Negative); Protein, Urine (Dipstick) Negative (Neg-Trace); Specific Gravity, Urine 1.029 (1.002-1.036); Urobilinogen Normal mg/dL (Less than 2)
[2020-12-18] MEDS ORDERED: Piperacillin/Tazobactam 3.375 GM VIAL ONE (19:17)
[2020-12-18] MEDS ORDERED: Acetaminophen 650 MG Suppository PR PRN (20:19)
[2020-12-18] MEDS ORDERED: Ondansetron PF 4 MG/2 ML Vial IVP PRN (20:19)
[2020-12-18] MEDS ORDERED: Ondansetron ODT 4 MG TAB PO PRN (20:19)
[2020-12-18] MEDS ORDERED: Electrolyte Replacement Protocol 1 EACH FS SCH (20:30)
[2020-12-18] MEDS ORDERED: Magnesium 2 GM/50 ML 2 GM in Premix Bag 1 BAG IVPB SCH (22:00)
[2020-12-18] MEDS ORDERED: Sodium Chloride 0.9% 1,000 ML IV SCH (22:00)
[2020-12-18] MEDS: Dextrose 5 % And 0.9 % NaCl 1,000 ML IV SCH (22:00)
[2020-12-18] MEDS ORDERED: Morphine 4 MG/ML VIAL SLOW IVP PRN (22:11)
[2020-12-18] MEDS ORDERED: Dextrose 50% Abboject 50 ML SYRINGE ONE (22:11)
[2020-12-18 23:18] VITALS: BMI 19.9
[2020-12-19] MEDS: Potassium Chloride 20 MEQ in Premix Bag 1 BAG IVPB SCH ×2 (00:45→03:24)
[2020-12-19] MEDS: Piperacillin/Tazobactam 3.375 GM in Sodium Chloride 0.9% 100 ML IVPB SCH ×4 (02:30→23:30)
[2020-12-19] MEDS ORDERED: Potassium Chloride 20 MEQ TAB PO SCH (02:45)
[2020-12-19 06:58] LABS: #Eosinphils 0.1 thou/uL (0.0-0.7); #Lymphocytes 0.8 thou/uL (1.20-3.40); #Monocytes 0.2 thou/uL (0.11-0.59); #Neutrophils 1.5 thou/uL (1.40-6.50); %Basophils 0.4 % (0.0-1.0); %Eosinophils 2.6 % (0.0-10.0); %Lymphocytes 31.3 % (21.0-51.0); %Monocytes 8.7 % (0.0-10.0); Hemoglobin 8.1 g/dL (12.0-16.0); Mean Corpuscular HGB CONC 33.4 g/dL (32.0-36.0); Mean Corpuscular Hemoglobin 30.5 pg (27.0-31.0); Mean Corpuscular Volume 91.2 fL (78.0-98.0); Mean Platelet Volume 8.2 fL (7.4-10.4); Platelet Count 202 thou/uL (130-400); RBC Distribution Width 14.2 % (11.5-14.5); Red Blood Cell (RBC) Count 2.64 mill/uL (4.20-5.40); White Blood Cell (WBC) Count 2.6 thou/uL (4.8-10.8)
[2020-12-19] MEDS ORDERED: Artificial Tear Sol 15 ML BOT EA EYE PRN (07:05)
[2020-12-19] MEDS ORDERED: Benzonatate 100 MG CAP PO PRN (07:05)
[2020-12-19] MEDS ORDERED: hydrALAZINE 20 MG/ML VIAL SLOW IVP PRN (07:05)
[2020-12-19] MEDS ORDERED: Loratadine 10 MG TAB PO PRN (07:05)
[2020-12-19] MEDS ORDERED: Calcium Carbonate 500 MG ChewTAB PO PRN (07:05)
[2020-12-19] MEDS ORDERED: Cepastat Lozenges 1 LOZ PO PRN (07:05)
[2020-12-19] MEDS ORDERED: Hydrocerin (Eucerin) Cream 120 gm Jar TOP PRN (07:05)
[2020-12-19] MEDS ORDERED: GUAIFENESIN SF SOLN 200 MG/10 ML UDCUP PO PRN (07:05)
[2020-12-19] MEDS ORDERED: Sodium Chloride 0.65% Nasal 44 ML BOT EA NARE PRN (07:05)
[2020-12-19] MEDS ORDERED: Fentanyl 100 MCG/2 ML VIAL SLOW IVP PRN (07:06)
[2020-12-19 07:26] LABS: Anion Gap 16 mmol/L (10-20); BUN (Urea Nitrogen) 9 mg/dL (9.8-20.1); Calc. Creatinine Clearance 62 mL/min (70-130); Calcium 8.9 mg/dL (7.8-10.44); Carbon Dioxide 22 mmol/L (23-31); Chloride 103 mmol/L (98-107); Glucose 76 mg/dL (83-110); Iron 82 ug/dL (50-170); Iron Binding Capacity, Total 200 mcg/dL (265-497); Potassium 3.7 mmol/L (3.5-5.1); Sodium 137 mmol/L (136-145)
[2020-12-19 07:28] LABS: Iron Binding Capacity, Total 194 mcg/dL (265-497)
[2020-12-19 07:29] LABS: Iron 79 ug/dL (50-170)
[2020-12-19] MEDS: Saccharomyces boulardii 250 MG CAP PO SCH (09:07)
[2020-12-19] MEDS: Famotidine 20 MG TAB PO SCH ×2 (09:07→21:29)
[2020-12-19] MEDS: Cyanocobalamin (Vitamin B-12) 1,000 MCG TAB PO SCH (09:07)
[2020-12-19] MEDS: Folic Acid 1 MG TAB PO SCH (09:07)
[2020-12-19] MEDS: Enoxaparin Sodium 40 MG/0.4 ML SYRINGE SC SCH (09:13)
[2020-12-19] MEDS: Multivitamin W/ Minerals 1 TAB PO SCH (09:13)
[2020-12-19 14:53] LABS: SARS-CoV-2 PCR by NAA Not Detected (NotDetected)
[2020-12-19] MEDS: Calcium Carbonate 600 MG + Vit D TAB PO SCH (16:30)
[2020-12-19] MEDS: Ketorolac Tromethamine 30 MG/ML VIAL IVP PRN (16:42)
[2020-12-19] MEDS: Dextrose 5 % And 0.9 % NaCl 1,000 ML IV SCH (18:47)
[2020-12-19] MEDS: Zolpidem Tartrate 5 MG TAB PO PRN (21:34)
[2020-12-20] MEDS: Dextrose 5 % And 0.9 % NaCl 1,000 ML IV SCH ×3 (03:54→23:34)
[2020-12-20 06:48] LABS: Anion Gap 14 mmol/L (10-20); BUN (Urea Nitrogen) 7 mg/dL (9.8-20.1); Calc. Creatinine Clearance 62 mL/min (70-130); Calcium 8.7 mg/dL (7.8-10.44); Carbon Dioxide 20 mmol/L (23-31); Chloride 106 mmol/L (98-107); Glucose 82 mg/dL (83-110); Magnesium 1.9 mg/dL (1.6-2.6); Potassium 3.3 mmol/L (3.5-5.1); Sodium 137 mmol/L (136-145)
[2020-12-20 06:51] LABS: #Eosinphils 0.1 thou/uL (0.0-0.7); #Lymphocytes 0.8 thou/uL (1.20-3.40); #Monocytes 0.2 thou/uL (0.11-0.59); #Neutrophils 1.6 thou/uL (1.40-6.50); %Basophils 1.1 % (0.0-1.0); %Eosinophils 3.4 % (0.0-10.0); %Lymphocytes 28.5 % (21.0-51.0); %Monocytes 8.3 % (0.0-10.0); %Neutrophils 58.7 % (42.0-75.0); Hemoglobin 7.3 g/dL (12.0-16.0); Mean Corpuscular HGB CONC 32.6 g/dL (32.0-36.0); Mean Corpuscular Hemoglobin 29.9 pg (27.0-31.0); Mean Corpuscular Volume 91.6 fL (78.0-98.0); Mean Platelet Volume 8.2 fL (7.4-10.4); Platelet Count 204 thou/uL (130-400); RBC Distribution Width 14.5 % (11.5-14.5); Red Blood Cell (RBC) Count 2.44 mill/uL (4.20-5.40); White Blood Cell (WBC) Count 2.7 thou/uL (4.8-10.8)
[2020-12-20] MEDS ORDERED: Potassium Chloride 20 MEQ TAB PO SCH (08:00)
[2020-12-20] MEDS ORDERED: Magnesium 2 GM/50 ML 2 GM in Premix Bag 1 BAG IVPB SCH (08:00)
[2020-12-20] MEDS: Folic Acid 1 MG TAB PO SCH (08:40)
[2020-12-20] MEDS: Enoxaparin Sodium 40 MG/0.4 ML SYRINGE SC SCH (08:40)
[2020-12-20] MEDS: Famotidine 20 MG TAB PO SCH ×2 (08:40→20:05)
[2020-12-20] MEDS: Saccharomyces boulardii 250 MG CAP PO SCH (08:40)
[2020-12-20] MEDS: Cholecalciferol 1,000 UNITS (25 MCG) TAB PO SCH (08:40)
[2020-12-20] MEDS: Multivitamin W/ Minerals 1 TAB PO SCH (08:41)
[2020-12-20] MEDS: Calcium Carbonate 600 MG + Vit D TAB PO SCH ×2 (08:41→17:16)
[2020-12-20] MEDS: Cyanocobalamin (Vitamin B-12) 1,000 MCG TAB PO SCH (08:41)
[2020-12-20] MEDS: Citrucel 500 MG TAB PO SCH (08:41)
[2020-12-20 11:39] LABS: CRP (Inflammatory) 2.72 mg/dL (= or < 0.5)
[2020-12-20 11:53] LABS: Ferritin 954.02 ng/mL (10-291); Free Thyroxine Index 1.63 (1.4-3.1); T4 5.8 ug/dL (4.87-11.72); Thyroid Stimulating Hormone 0.6921 uIU/mL (0.35-4.94)
[2020-12-20] MEDS: Piperacillin/Tazobactam 3.375 GM in Sodium Chloride 0.9% 100 ML IVPB SCH ×3 (13:19→21:05)
[2020-12-20] MEDS: Ketorolac Tromethamine 30 MG/ML VIAL IVP PRN (15:18)
[2020-12-20] MEDS: Zolpidem Tartrate 5 MG TAB PO PRN (23:54)
[2020-12-21] MEDS: Piperacillin/Tazobactam 3.375 GM in Sodium Chloride 0.9% 100 ML IVPB SCH ×3 (06:03→21:18)
[2020-12-21] MEDS: Enoxaparin Sodium 40 MG/0.4 ML SYRINGE SC SCH (08:08)
[2020-12-21] MEDS: Calcium Carbonate 600 MG + Vit D TAB PO SCH ×2 (08:09→17:02)
[2020-12-21] MEDS: Cholecalciferol 1,000 UNITS (25 MCG) TAB PO SCH (08:09)
[2020-12-21] MEDS: Cyanocobalamin (Vitamin B-12) 1,000 MCG TAB PO SCH (08:09)
[2020-12-21] MEDS: Citrucel 500 MG TAB PO SCH (08:09)
[2020-12-21] MEDS: Saccharomyces boulardii 250 MG CAP PO SCH (08:09)
[2020-12-21] MEDS: Famotidine 20 MG TAB PO SCH ×2 (08:09→21:18)
[2020-12-21] MEDS: Multivitamin W/ Minerals 1 TAB PO SCH (08:09)
[2020-12-21] MEDS: Folic Acid 1 MG TAB PO SCH (08:09)
[2020-12-21] MEDS: Dextrose 5 % And 0.9 % NaCl 1,000 ML IV SCH (08:10)
[2020-12-21] MEDS: Ketorolac Tromethamine 30 MG/ML VIAL IVP PRN (14:08)
[2020-12-22] MEDS: Piperacillin/Tazobactam 3.375 GM in Sodium Chloride 0.9% 100 ML IVPB SCH ×3 (06:05→21:03)
[2020-12-22] MEDS: Saccharomyces boulardii 250 MG CAP PO SCH (08:16)
[2020-12-22] MEDS: Folic Acid 1 MG TAB PO SCH (08:17)
[2020-12-22] MEDS: Famotidine 20 MG TAB PO SCH ×2 (08:17→20:36)
[2020-12-22] MEDS: Cholecalciferol 1,000 UNITS (25 MCG) TAB PO SCH (08:18)
[2020-12-22] MEDS: Multivitamin W/ Minerals 1 TAB PO SCH (08:18)
[2020-12-22] MEDS: Calcium Carbonate 600 MG + Vit D TAB PO SCH ×2 (08:19→16:24)
[2020-12-22] MEDS: Cyanocobalamin (Vitamin B-12) 1,000 MCG TAB PO SCH (08:19)
[2020-12-22] MEDS: Enoxaparin Sodium 40 MG/0.4 ML SYRINGE SC SCH (08:22)
[2020-12-22] MEDS: Citrucel 500 MG TAB PO SCH (08:25)
[2020-12-22 12:33] LABS: #Eosinphils 0.1 thou/uL (0.0-0.7); #Lymphocytes 0.9 thou/uL (1.20-3.40); #Monocytes 0.2 thou/uL (0.11-0.59); #Neutrophils 1.8 thou/uL (1.40-6.50); %Basophils 0.5 % (0.0-1.0); %Eosinophils 3.4 % (0.0-10.0); %Lymphocytes 30.1 % (21.0-51.0); %Monocytes 7.1 % (0.0-10.0); Hemoglobin 7.4 g/dL (12.0-16.0); Mean Corpuscular HGB CONC 32.9 g/dL (32.0-36.0); Mean Corpuscular Hemoglobin 30.4 pg (27.0-31.0); Mean Corpuscular Volume 92.2 fL (78.0-98.0); Mean Platelet Volume 8.4 fL (7.4-10.4); Platelet Count 215 thou/uL (130-400); RBC Distribution Width 14.6 % (11.5-14.5); Red Blood Cell (RBC) Count 2.44 mill/uL (4.20-5.40); White Blood Cell (WBC) Count 3.1 thou/uL (4.8-10.8)
[2020-12-22 12:57] LABS: Anion Gap 13 mmol/L (10-20); BUN (Urea Nitrogen) 6 mg/dL (9.8-20.1); Calc. Creatinine Clearance 69 mL/min (70-130); Calcium 8.9 mg/dL (7.8-10.44); Carbon Dioxide 24 mmol/L (23-31); Chloride 102 mmol/L (98-107); Glucose 77 mg/dL (83-110); Sodium 136 mmol/L (136-145)
[2020-12-22] MEDS ORDERED: Potassium Chloride 20 MEQ TAB PO SCH (14:00)
[2020-12-22] MEDS: Acetaminophen 325 MG TAB PO PRN (20:39)
[2020-12-22] MEDS: Zolpidem Tartrate 5 MG TAB PO PRN (20:55)
[2020-12-23] MEDS: Piperacillin/Tazobactam 3.375 GM in Sodium Chloride 0.9% 100 ML IVPB SCH (05:45)
[2020-12-23] MEDS: Citrucel 500 MG TAB PO SCH (08:52)
[2020-12-23] MEDS: Multivitamin W/ Minerals 1 TAB PO SCH (08:52)
[2020-12-23] MEDS: Enoxaparin Sodium 40 MG/0.4 ML SYRINGE SC SCH (08:52)
[2020-12-23] MEDS: Calcium Carbonate 600 MG + Vit D TAB PO SCH ×2 (08:52→18:06)
[2020-12-23] MEDS: Famotidine 20 MG TAB PO SCH ×2 (08:52→20:52)
[2020-12-23] MEDS: Cholecalciferol 1,000 UNITS (25 MCG) TAB PO SCH (08:52)
[2020-12-23] MEDS: Cyanocobalamin (Vitamin B-12) 1,000 MCG TAB PO SCH (08:52)
[2020-12-23] MEDS: Saccharomyces boulardii 250 MG CAP PO SCH (08:52)
[2020-12-23] MEDS: Folic Acid 1 MG TAB PO SCH (08:52)
[2020-12-23] MEDS ORDERED: Potassium Chloride 20 MEQ TAB PO SCH (14:00)
[2020-12-23] MEDS: Amoxicillin/Potassium Clav 875 MG TAB PO SCH (20:52)
[2020-12-23] MEDS: Zolpidem Tartrate 5 MG TAB PO PRN (20:54)
[2020-12-24 06:21] LABS: #Eosinphils 0.1 thou/uL (0.0-0.7); #Lymphocytes 0.9 thou/uL (1.20-3.40); #Monocytes 0.3 thou/uL (0.11-0.59); #Neutrophils 1.2 thou/uL (1.40-6.50); %Basophils 0.5 % (0.0-1.0); %Eosinophils 4.5 % (0.0-10.0); %Lymphocytes 35.9 % (21.0-51.0); %Monocytes 12.4 % (0.0-10.0); %Neutrophils 46.6 % (42.0-75.0); Hemoglobin 7.6 g/dL (12.0-16.0); Mean Corpuscular HGB CONC 32.2 g/dL (32.0-36.0); Mean Corpuscular Hemoglobin 29.7 pg (27.0-31.0); Mean Corpuscular Volume 92.3 fL (78.0-98.0); Mean Platelet Volume 8.2 fL (7.4-10.4); Platelet Count 189 thou/uL (130-400); RBC Distribution Width 14.9 % (11.5-14.5); Red Blood Cell (RBC) Count 2.56 mill/uL (4.20-5.40); White Blood Cell (WBC) Count 2.6 thou/uL (4.8-10.8)
[2020-12-24 06:33] LABS: Anion Gap 11 mmol/L (10-20); BUN (Urea Nitrogen) 14 mg/dL (9.8-20.1); Calc. Creatinine Clearance 69 mL/min (70-130); Calcium 9.2 mg/dL (7.8-10.44); Carbon Dioxide 26 mmol/L (23-31); Chloride 104 mmol/L (98-107); Glucose 87 mg/dL (83-110); Potassium 4.1 mmol/L (3.5-5.1); Sodium 137 mmol/L (136-145)
[2020-12-24] MEDS: Enoxaparin Sodium 40 MG/0.4 ML SYRINGE SC SCH (08:46)
[2020-12-24] MEDS: Amoxicillin/Potassium Clav 875 MG TAB PO SCH ×2 (08:46→20:19)
[2020-12-24] MEDS: Cyanocobalamin (Vitamin B-12) 1,000 MCG TAB PO SCH (08:46)
[2020-12-24] MEDS: Citrucel 500 MG TAB PO SCH (08:46)
[2020-12-24] MEDS: Cholecalciferol 1,000 UNITS (25 MCG) TAB PO SCH (08:46)
[2020-12-24] MEDS: Folic Acid 1 MG TAB PO SCH (08:47)
[2020-12-24] MEDS: Multivitamin W/ Minerals 1 TAB PO SCH (08:47)
[2020-12-24] MEDS: Calcium Carbonate 600 MG + Vit D TAB PO SCH ×2 (08:47→17:11)
[2020-12-24] MEDS: Saccharomyces boulardii 250 MG CAP PO SCH (08:47)
[2020-12-24] MEDS: Famotidine 20 MG TAB PO SCH ×2 (08:47→20:19)
[2020-12-24] MEDS: Acetaminophen 325 MG TAB PO PRN (14:16)
[2020-12-24] MEDS: Zolpidem Tartrate 5 MG TAB PO PRN (20:19)
[2020-12-25 06:55] LABS: #Eosinphils 0.1 thou/uL (0.0-0.7); #Lymphocytes 0.8 thou/uL (1.20-3.40); #Monocytes 0.3 thou/uL (0.11-0.59); #Neutrophils 1.3 thou/uL (1.40-6.50); %Basophils 0.2 % (0.0-1.0); %Eosinophils 3.3 % (0.0-10.0); %Monocytes 12.7 % (0.0-10.0); %Neutrophils 53.8 % (42.0-75.0); Hemoglobin 7.9 g/dL (12.0-16.0); Mean Corpuscular HGB CONC 32.4 g/dL (32.0-36.0); Mean Corpuscular Hemoglobin 29.8 pg (27.0-31.0); Mean Corpuscular Volume 91.8 fL (78.0-98.0); Platelet Count 188 thou/uL (130-400); RBC Distribution Width 15.4 % (11.5-14.5); Red Blood Cell (RBC) Count 2.67 mill/uL (4.20-5.40); White Blood Cell (WBC) Count 2.5 thou/uL (4.8-10.8)
[2020-12-25 07:18] LABS: Anion Gap 11 mmol/L (10-20); BUN (Urea Nitrogen) 15 mg/dL (9.8-20.1); Calc. Creatinine Clearance 67 mL/min (70-130); Calcium 9.5 mg/dL (7.8-10.44); Carbon Dioxide 27 mmol/L (23-31); Chloride 104 mmol/L (98-107); Glucose 84 mg/dL (83-110); Potassium 4.3 mmol/L (3.5-5.1); Sodium 138 mmol/L (136-145)
[2020-12-25] MEDS: Enoxaparin Sodium 40 MG/0.4 ML SYRINGE SC SCH (07:51)
[2020-12-25] MEDS: Famotidine 20 MG TAB PO SCH ×2 (07:51→19:50)
[2020-12-25] MEDS: Amoxicillin/Potassium Clav 875 MG TAB PO SCH ×2 (07:51→19:50)
[2020-12-25] MEDS: Cyanocobalamin (Vitamin B-12) 1,000 MCG TAB PO SCH (07:51)
[2020-12-25] MEDS: Cholecalciferol 1,000 UNITS (25 MCG) TAB PO SCH (07:52)
[2020-12-25] MEDS: Saccharomyces boulardii 250 MG CAP PO SCH (07:52)
[2020-12-25] MEDS: Calcium Carbonate 600 MG + Vit D TAB PO SCH ×2 (07:52→16:37)
[2020-12-25] MEDS: Citrucel 500 MG TAB PO SCH (07:52)
[2020-12-25] MEDS: Folic Acid 1 MG TAB PO SCH (07:52)
[2020-12-25] MEDS: Multivitamin W/ Minerals 1 TAB PO SCH (07:52)
[2020-12-25] MEDS: Acetaminophen 325 MG TAB PO PRN (19:54)
[2020-12-25] MEDS: Zolpidem Tartrate 5 MG TAB PO PRN (21:32)
[2020-12-26 04:38] VITALS: TEMP 97.9
[2020-12-26] MEDS: Acetaminophen 325 MG TAB PO PRN (06:19)
[2020-12-26 07:29] LABS: #Eosinphils 0.1 thou/uL (0.0-0.7); #Lymphocytes 0.8 thou/uL (1.20-3.40); #Monocytes 0.3 thou/uL (0.11-0.59); #Neutrophils 1.1 thou/uL (1.40-6.50); %Basophils 0.4 % (0.0-1.0); %Eosinophils 4.5 % (0.0-10.0); %Lymphocytes 35.8 % (21.0-51.0); %Monocytes 12.2 % (0.0-10.0); %Neutrophils 47.1 % (42.0-75.0); Hemoglobin 8.6 g/dL (12.0-16.0); Mean Corpuscular HGB CONC 32.9 g/dL (32.0-36.0); Mean Corpuscular Hemoglobin 30.1 pg (27.0-31.0); Mean Corpuscular Volume 91.4 fL (78.0-98.0); Mean Platelet Volume 8.8 fL (7.4-10.4); Platelet Count 202 thou/uL (130-400); RBC Distribution Width 15.4 % (11.5-14.5); Red Blood Cell (RBC) Count 2.84 mill/uL (4.20-5.40); White Blood Cell (WBC) Count 2.2 thou/uL (4.8-10.8)
[2020-12-26 07:42] LABS: Anion Gap 12 mmol/L (10-20); BUN (Urea Nitrogen) 17 mg/dL (9.8-20.1); Calc. Creatinine Clearance 65 mL/min (70-130); Calcium 9.3 mg/dL (7.8-10.44); Carbon Dioxide 25 mmol/L (23-31); Chloride 104 mmol/L (98-107); Glucose 85 mg/dL (83-110); Potassium 4.3 mmol/L (3.5-5.1); Sodium 137 mmol/L (136-145)
[2020-12-26] MEDS: Enoxaparin Sodium 40 MG/0.4 ML SYRINGE SC SCH (08:00)
[2020-12-26] MEDS: Saccharomyces boulardii 250 MG CAP PO SCH (08:01)
[2020-12-26] MEDS: Calcium Carbonate 600 MG + Vit D TAB PO SCH (08:01)
[2020-12-26] MEDS: Cyanocobalamin (Vitamin B-12) 1,000 MCG TAB PO SCH (08:01)
[2020-12-26] MEDS: Amoxicillin/Potassium Clav 875 MG TAB PO SCH (08:01)
[2020-12-26] MEDS: Cholecalciferol 1,000 UNITS (25 MCG) TAB PO SCH (08:01)
[2020-12-26] MEDS: Famotidine 20 MG TAB PO SCH (08:01)
[2020-12-26] MEDS: Multivitamin W/ Minerals 1 TAB PO SCH (08:01)
[2020-12-26] MEDS: Folic Acid 1 MG TAB PO SCH (08:02)
[2020-12-26] MEDS: Citrucel 500 MG TAB PO SCH (08:03)
[2020-12-26 08:39] VITALS: BP 121/72
== END 2020-12-26 14:15 | disposition swing bed (61) | DRG 872 ==
LOC: ERS 15:44 → T4-B 19:29
PROVIDERS: ADMIT Student in an Organized Health Care Education/Training Program; ATTEND Internal Medicine
DX: A41.9 Sepsis, unspecified organism (principal); S32.040A Wedge compression fracture of fourth lumbar vertebra, initial encounter for closed fracture; E44.0 Moderate protein-calorie malnutrition; Z68.1 Body mass index [BMI] 19.9 or less, adult; K52.9 Noninfective gastroenteritis and colitis, unspecified; M79.7 Fibromyalgia; M10.9 Gout, unspecified; Z20.822 Contact with and (suspected) exposure to COVID-19; M19.90 Unspecified osteoarthritis, unspecified site; M32.9 Systemic lupus erythematosus, unspecified; J43.9 Emphysema, unspecified; K21.9 Gastro-esophageal reflux disease without esophagitis; E78.5 Hyperlipidemia, unspecified; N18.30 Chronic kidney disease, stage 3 unspecified; I12.9 Hypertensive chronic kidney disease with stage 1 through stage 4 chronic kidney disease, or unspecified chronic kidney disease; G89.29 Other chronic pain; Z96.653 Presence of artificial knee joint, bilateral; Z96.643 Presence of artificial hip joint, bilateral; F17.210 Nicotine dependence, cigarettes, uncomplicated; D63.1 Anemia in chronic kidney disease; F41.9 Anxiety disorder, unspecified; F32.A Depression, unspecified; E87.6 Hypokalemia; W18.39XA Other fall on same level, initial encounter; Y92.009 Unspecified place in unspecified non-institutional (private) residence as the place of occurrence of the external cause; Z88.5 Allergy status to narcotic agent; Z91.040 Latex allergy status; Z90.49 Acquired absence of other specified parts of digestive tract; Z79.899 Other long term (current) drug therapy
CPT/HCPCS: 36415; 36416; 70450; 71045; 72125; 72170; 74177; 80048; 80053; 81003; 82550; 82607; 82728; 82746; 83540; 83550; 83605; 83735; 84100; 84436; 84443; 84479; 84484; 85025; 86140; 87040; 87045; 87046; 87086; 87328; 87329; 87427; 87449; 93005; 96374; J1650; J1885; J2543; J3475; J3480; J3490; J7042; Q9967; U0003; U0005

== ENCOUNTER 2022-01-23 09:34 | Inpatient (IN) | payer MEDICARE ==
[2022-01-23 10:48] LABS: #Eosinphils 0.1 thou/uL (0.0-0.7); #Lymphocytes 0.7 thou/uL (1.20-3.40); #Monocytes 0.4 thou/uL (0.11-0.59); #Neutrophils 2.9 thou/uL (1.40-6.50); %Basophils 0.1 % (0.0-1.0); %Eosinophils 1.6 % (0.0-10.0); %Lymphocytes 17.4 % (21.0-51.0); %Neutrophils 71.9 % (42.0-75.0); Hemoglobin 8.9 g/dL (12.0-16.0); Mean Corpuscular HGB CONC 31.6 g/dL (32.0-36.0); Mean Corpuscular Hemoglobin 30.2 pg (27.0-31.0); Mean Corpuscular Volume 95.5 fl (78.0-98.0); Mean Platelet Volume 9.4 fL (7.4-10.4); Platelet Count 188 10x3/uL (130-400); RBC Distribution Width 15.7 % (11.5-14.5); Red Blood Cell (RBC) Count 2.96 mill/uL (4.20-5.40)
[2022-01-23 11:12] LABS: ALT (SGPT) 10 U/L (8-55); AST (SGOT) 28 U/L (5-34); Albumin 3.6 g/dL (3.4-4.8); Alkaline Phosphatase 55 U/L (40-110); Anion Gap 17 mmol/L (10-20); BUN (Urea Nitrogen) 15 mg/dL (9.8-20.1); Bilirubin, Total 0.3 mg/dL (0.2-1.2); Calc. Creatinine Clearance 0 mL/min (70-130); Calcium 9.8 mg/dL (7.8-10.44); Carbon Dioxide 22 mmol/L (23-31); Chloride 101 mmol/L (98-107); Estimated GFR 48; Globulin 5.4 g/dL (2.4-3.5); Glucose 92 mg/dL (83-110); Potassium 3.7 mmol/L (3.5-5.1); Sodium 136 mmol/L (136-145)
[2022-01-23] MEDS ORDERED: Iopamidol-370 76% 500 ML 1 ML ONE (11:13)
[2022-01-23 12:12] LABS: Bacteria/HPF None Seen HPF (None Seen); Bilirubin 1+ (Negative); Blood, Urine Negative (Negative); Clarity Clear (Clear); Glucose, Urine (Dipstick) Normal (Negative); Ketone, Urine 40 mg/dL (Negative); Leukocyte Negative Leu/uL (Negative); Nitrite Negative (Negative); Protein, Urine (Dipstick) 100 mg/dL (Neg-Trace); RBC/HPF 0-3 HPF (0-3); Specific Gravity, Urine 1.022 (1.002-1.036); Squamous Epithelial None Seen HPF (0-3); WBC/HPF 0-3 HPF (0-3)
[2022-01-23] MEDS ORDERED: methylPREDNISolone Sod Succ/PF 125 MG/2 ML VIAL ONE (13:13)
[2022-01-23 15:29] LABS: Troponin I Less than 0.010 ng/mL (< 0.028)
[2022-01-23] MEDS ORDERED: Lactated Ringer's 1,000 ML IV SCH (15:45)
[2022-01-23 16:29] VITALS: BMI 20.5
[2022-01-23 18:09] LABS: Troponin I 0.016 ng/mL (< 0.028)
[2022-01-23] MEDS: Acetaminophen 325 MG TAB PO PRN (20:38)
[2022-01-23] MEDS: Famotidine 20 MG TAB PO SCH (20:38)
[2022-01-24 05:57] LABS: ALT (SGPT) 10 U/L (8-55); AST (SGOT) 22 U/L (5-34); Albumin 3.2 g/dL (3.4-4.8); Alkaline Phosphatase 48 U/L (40-110); Anion Gap 14 mmol/L (10-20); BUN (Urea Nitrogen) 15 mg/dL (9.8-20.1); Bilirubin, Total 0.3 mg/dL (0.2-1.2); Calc. Creatinine Clearance 48 mL/min (70-130); Calcium 9.1 mg/dL (7.8-10.44); Carbon Dioxide 24 mmol/L (23-31); Cardiac Risk 3.8 (Less than 4.5); Chloride 100 mmol/L (98-107); Cholesterol 120 mg/dl (< 200 Desired); Estimated GFR 62; Globulin 4.6 g/dL (2.4-3.5); Glucose 122 mg/dL (83-110); HDL Cholesterol 32 mg/dL (>60 Neg Risk); Potassium 4.2 mmol/L (3.5-5.1); Protein, Total 7.8 g/dL (5.8-8.1); Sodium 134 mmol/L (136-145)
[2022-01-24 06:55] LABS: Triglycerides 63 mg/dL (Less than 150)
[2022-01-24 07:00] LABS: LDL Cholesterol, Calculated 75 mg/dL
[2022-01-24] MEDS: Acetaminophen 325 MG TAB PO PRN (08:21)
[2022-01-24] MEDS: Famotidine 20 MG TAB PO SCH (08:22)
[2022-01-24] MEDS: Aspirin Chewable 81 MG TAB PO SCH (08:22)
[2022-01-24] MEDS ORDERED: FLU VACC QS2022-23(65YR UP)/PF 240 MCG/0.7 ML SYRINGE IM ONE (09:00)
[2022-01-24] MEDS ORDERED: diphenhydrAMINE 50 MG/ML VIAL IVP SCH (18:45)
[2022-01-24] MEDS ORDERED: Levalbuterol HCl 1.25 MG/0.5 ML NEB NEB PRN (19:43)
[2022-01-24] MEDS: Pregabalin 25 MG CAP PO SCH (21:06)
[2022-01-24] MEDS: Atorvastatin Calcium 10 MG TAB PO SCH (21:06)
[2022-01-24] MEDS: hydrOXYzine 25 MG TAB PO PRN (22:11)
[2022-01-25] MEDS: Pregabalin 25 MG CAP PO SCH ×3 (08:28→21:04)
[2022-01-25] MEDS: Aspirin Chewable 81 MG TAB PO SCH (08:28)
[2022-01-25] MEDS: Ferrous Sulfate 325 MG TAB PO SCH (08:30)
[2022-01-25] MEDS: Folic Acid 1 MG TAB PO SCH (08:31)
[2022-01-25] MEDS: Famotidine 20 MG TAB PO SCH (08:31)
[2022-01-25] MEDS: Amlodipine 10 MG TAB PO SCH (08:31)
[2022-01-25] MEDS: Sertraline 100 MG TAB PO SCH (08:31)
[2022-01-25] MEDS: Atorvastatin Calcium 10 MG TAB PO SCH (21:04)
[2022-01-26] MEDS: Pregabalin 25 MG CAP PO SCH ×3 (09:45→21:22)
[2022-01-26] MEDS: Famotidine 20 MG TAB PO SCH (09:45)
[2022-01-26] MEDS: Folic Acid 1 MG TAB PO SCH (09:45)
[2022-01-26] MEDS: Ferrous Sulfate 325 MG TAB PO SCH (09:45)
[2022-01-26] MEDS: Amlodipine 10 MG TAB PO SCH (09:46)
[2022-01-26] MEDS: Aspirin Chewable 81 MG TAB PO SCH (09:46)
[2022-01-26] MEDS: Sertraline 100 MG TAB PO SCH (09:46)
[2022-01-26] MEDS ORDERED: Cosyntropin 250 MCG VIAL SLOW IVP SCH (15:00)
[2022-01-26 16:01] LABS: Complement-C4 28.6 mg/dL (15-57)
[2022-01-26 16:26] LABS: Free T4 (Free Thyroxine) 0.92 ng/dL (0.70-1.48)
[2022-01-26] MEDS: Atorvastatin Calcium 10 MG TAB PO SCH (21:25)
[2022-01-26] MEDS: hydrOXYzine 25 MG TAB PO PRN (22:59)
[2022-01-27 06:22] LABS: Anion Gap 12 mmol/L (10-20); BUN (Urea Nitrogen) 11 mg/dL (9.8-20.1); Calc. Creatinine Clearance 63 mL/min (70-130); Calcium 8.8 mg/dL (7.8-10.44); Carbon Dioxide 27 mmol/L (23-31); Chloride 103 mmol/L (98-107); Estimated GFR 84; Glucose 86 mg/dL (83-110); Potassium 3.6 mmol/L (3.5-5.1); Sodium 138 mmol/L (136-145)
[2022-01-27] MEDS: Folic Acid 1 MG TAB PO SCH (08:49)
[2022-01-27] MEDS: Famotidine 20 MG TAB PO SCH (08:49)
[2022-01-27] MEDS: Amlodipine 10 MG TAB PO SCH (08:49)
[2022-01-27] MEDS: Sertraline 100 MG TAB PO SCH (08:49)
[2022-01-27] MEDS: Ferrous Sulfate 325 MG TAB PO SCH (08:49)
[2022-01-27] MEDS: Pregabalin 25 MG CAP PO SCH ×3 (08:49→21:10)
[2022-01-27] MEDS: Aspirin Chewable 81 MG TAB PO SCH (08:49)
[2022-01-27] MEDS ORDERED: predniSONE 20 MG TAB PO SCH (13:00)
[2022-01-27] MEDS ORDERED: Cyanocobalamin 1000 MCG/ML VIAL IM SCH (14:45)
[2022-01-27] MEDS: Atorvastatin Calcium 10 MG TAB PO SCH (21:10)
[2022-01-28] MEDS: Pregabalin 25 MG CAP PO SCH ×3 (08:58→21:05)
[2022-01-28] MEDS: Ferrous Sulfate 325 MG TAB PO SCH (08:59)
[2022-01-28] MEDS: Sertraline 100 MG TAB PO SCH (08:59)
[2022-01-28] MEDS: Folic Acid 1 MG TAB PO SCH (08:59)
[2022-01-28] MEDS: Amlodipine 10 MG TAB PO SCH (08:59)
[2022-01-28] MEDS: Famotidine 20 MG TAB PO SCH ×2 (08:59→21:04)
[2022-01-28] MEDS: Aspirin Chewable 81 MG TAB PO SCH (08:59)
[2022-01-28] MEDS: predniSONE 20 MG TAB PO SCH (09:00)
[2022-01-28 13:18] LABS: dsDNA IgG Antibody 1.9 IU/mL (<10 Negative)
[2022-01-28] MEDS: Atorvastatin Calcium 10 MG TAB PO SCH (21:04)
[2022-01-28] MEDS: hydrOXYzine 25 MG TAB PO PRN (21:05)
[2022-01-29] MEDS: Amlodipine 10 MG TAB PO SCH (08:58)
[2022-01-29] MEDS: Aspirin Chewable 81 MG TAB PO SCH (08:58)
[2022-01-29] MEDS: predniSONE 20 MG TAB PO SCH (08:58)
[2022-01-29] MEDS: Pregabalin 25 MG CAP PO SCH ×2 (08:58→15:35)
[2022-01-29] MEDS: Ferrous Sulfate 325 MG TAB PO SCH (08:58)
[2022-01-29] MEDS: Famotidine 20 MG TAB PO SCH (08:59)
[2022-01-29] MEDS: Sertraline 100 MG TAB PO SCH (08:59)
[2022-01-29] MEDS: Folic Acid 1 MG TAB PO SCH (08:59)
[2022-01-29 16:00] VITALS: BP 128/61; TEMP 98.7
== END 2022-01-29 19:05 | disposition swing bed (61) | DRG 547 ==
LOC: ERS 09:34 → 2SW 14:29 → OBSVTOIN 01-26 14:08
PROVIDERS: ADMIT Internal Medicine; ATTEND Internal Medicine
DX: M35.3 Polymyalgia rheumatica (principal); Z20.822 Contact with and (suspected) exposure to COVID-19; Z23 Encounter for immunization; K52.9 Noninfective gastroenteritis and colitis, unspecified; M32.9 Systemic lupus erythematosus, unspecified; D63.8 Anemia in other chronic diseases classified elsewhere; M19.90 Unspecified osteoarthritis, unspecified site; I12.9 Hypertensive chronic kidney disease with stage 1 through stage 4 chronic kidney disease, or unspecified chronic kidney disease; J44.9 Chronic obstructive pulmonary disease, unspecified; D63.1 Anemia in chronic kidney disease; M79.7 Fibromyalgia; N18.2 Chronic kidney disease, stage 2 (mild); D51.9 Vitamin B12 deficiency anemia, unspecified; Z88.5 Allergy status to narcotic agent; Z91.040 Latex allergy status; Z79.899 Other long term (current) drug therapy
CPT/HCPCS: 36415; 71045; 74177; 78451; 80048; 80053; 80061; 80400; 81003; 81015; 82607; 83605; 83690; 83880; 84439; 84443; 84484; 85025; 85652; 86160; 86225; 86850; 86900; 86901; 90471; 90662; 90732; 93005; 93306; 94760; 96375; A9500; G0008; G0009; G0378; J0834; J1200; J2930; J3420; J7120; J7512; Q9967; U0003; U0005

== ENCOUNTER 2023-04-10 13:10 | Emergency (ER) | payer MEDICARE ==
[2023-04-10 13:48] LABS: #Monocytes 0.1 thou/uL (0.11-0.59); #Neutrophils 4.2 thou/uL (1.40-6.50); %Basophils 0.2 % (0.0-1.0); %Eosinophils 0.4 % (0.0-10.0); %Lymphocytes 9.8 % (21.0-51.0); %Monocytes 2.5 % (0.0-10.0); %Neutrophils 86.3 % (42.0-75.0); Hematocrit 26.6 % (36.0-47.0); Hemoglobin 8.2 g/dL (12.0-16.0); Mean Corpuscular HGB CONC 30.8 g/dL (32.0-36.0); Mean Corpuscular Volume 97.4 fl (78.0-98.0); Platelet Count 163 10x3/uL (130-400); RBC Distribution Width 20.9 % (11.5-14.5); Red Blood Cell (RBC) Count 2.73 mill/uL (4.20-5.40); White Blood Cell (WBC) Count 4.9 10x3/uL (4.8-10.8)
[2023-04-10] MEDS ORDERED: fentaNYL 50 mcg/mL 1 mL Vial ONE (14:01)
[2023-04-10] MEDS ORDERED: Ondansetron PF 4 MG/2 ML Vial ONE (14:01)
[2023-04-10 14:03] LABS: PTT 25.2 sec (22.9-36.1); Prothrombin Time 13.6 sec (12.0-14.7)
[2023-04-10 14:29] LABS: ALT (SGPT) 23 U/L (8-55); AST (SGOT) 29 U/L (5-34); Albumin 3.6 g/dL (3.4-4.8); Alkaline Phosphatase 83 U/L (40-110); Anion Gap 12 mmol/L (10-20); BUN (Urea Nitrogen) 16 mg/dL (9.8-20.1); Bilirubin, Total 0.4 mg/dL (0.2-1.2); Calc. Creatinine Clearance 0 mL/min (70-130); Calcium 9.1 mg/dL (7.8-10.44); Carbon Dioxide 27 mmol/L (23-31); Chloride 104 mmol/L (98-107); Estimated GFR 53; Globulin 5.4 g/dL (2.4-3.5); Glucose 97 mg/dL (83-110); Lipase 51 U/L (8-78); Potassium 4.7 mmol/L (3.5-5.1); Sodium 138 mmol/L (136-145)
[2023-04-10] MEDS ORDERED: HYDROcodone/Acetaminophen 5/325 mg Tablet ONE (16:00)
== END 2023-04-10 20:00 | disposition home or self-care (01) ==
LOC: ERS 13:10
DX: M97.02XA Periprosthetic fracture around internal prosthetic left hip joint, initial encounter (principal); J43.9 Emphysema, unspecified; I12.9 Hypertensive chronic kidney disease with stage 1 through stage 4 chronic kidney disease, or unspecified chronic kidney disease; D63.8 Anemia in other chronic diseases classified elsewhere; N18.30 Chronic kidney disease, stage 3 unspecified; F17.210 Nicotine dependence, cigarettes, uncomplicated; W18.30XA Fall on same level, unspecified, initial encounter; Z79.82 Long term (current) use of aspirin
CPT/HCPCS: 70450; 71045; 72125; 72170; 73552; 80053; 83605; 83690; 85025; 85610; 85730; 86850; 86900; 86901; 93005; J3010; 96374; 96375; J2405